=== PATIENT | male | born 1990 | race Caucasian/White ===

== ENCOUNTER 2021-08-01 13:04 | Outpatient (REF) | payer OTHER, SELFPAY ==
[2021-08-03 13:43] LABS: HIV-1/2 Ag & Ab Screen Negative (Negative)
[2021-08-04 10:00] LABS: Hepatitis C Ab w Rflx HCV PCR Negative (Negative)
[2021-08-04 12:19] LABS: HSV Type 1 Ab, IgG Positive (Negative); HSV Type 2 Ab, IgG Positive (Negative)
== END 2021-08-01 13:05 | disposition home or self-care (01) ==
LOC: NCHCN 13:04
PROVIDERS: PCP Nurse Practitioner Family; Visit Provider Family Medicine
DX: L98.9 Disorder of the skin and subcutaneous tissue, unspecified (principal); Z11.4 Encounter for screening for human immunodeficiency virus [HIV]; Z11.59 Encounter for screening for other viral diseases
CPT/HCPCS: 86803; 87389; 87529; 86695; 86696

== ENCOUNTER 2023-03-12 18:17 | Outpatient (REF) | payer OTHER, SELFPAY ==
[2023-03-12 14:21] LABS: Abs Immature Grans 0.01 10^3/uL (0.0-0.06); Absolute Basophil Count 0.04 10^3/uL (0.0-0.2); Absolute Eosinophil Count 0.05 10^3/uL (0.0-0.7); Absolute Lymphocyte Count 1.73 10^3/uL (1.2-3.4); Absolute Monocyte Count 0.44 10^3/uL (0.1-0.8); Absolute Neutrophil Count 2.57 10^3/uL (1.2-6.7); Basophils % 0.8; HCT 46.1 % (40.0-50.0); HGB 15.8 g/dL (13.5-17.5); Immature Grans % 0.2; Lymphocytes % 35.7; MCH 29.6 pg (27.0-33.0); MCHC 34.3 % (32.0-36.0); MCV 86 fL (80-95); MPV 10.7 fL (8.0-11.0); Monocytes % 9.1; Neutrophils % 53.2; Platelet Count 209 10^3/uL (130-400); RBC 5.34 10^6/uL (4.36-5.78); RDW 12.4 % (11.8-14.1); WBC 4.84 10^3/uL (4.4-10.8)
[2023-03-12 14:47] LABS: ALT 27 U/L (16-63); AST 17 U/L (15-37); Albumin 4.4 g/dL (3.4-5.0); Alkaline Phosphatase 98 U/L (46-116); Anion Gap 10.6 mmol/L (3-11); BUN 9 mg/dL (7-18); Bilirubin, Total 0.5 mg/dL (0.2-1.0); CO2 27.4 mmol/L (21.0-32.0); CREATININE 0.9 mg/dL (0.70-1.30); Calcium 9.7 mg/dL (8.5-10.1); Chloride 101 mmol/L (98-107); Estimated GFR 117.83 (mL/min/1.73m2); Glucose 96 mg/dL (74-106); Potassium 4.4 mmol/L (3.5-5.1); Sodium 139 mmol/L (136-145); TSH (W/Ref FT4) 0.98 uIU/mL (0.36-3.74)
[2023-03-12 14:56] LABS: Vitamin D 25 Total 13.5 ng/mL (30-100)
[2023-03-23 09:39] LABS: Testosterone, Free 10.9 ng/dL (4.85-19.0); Testosterone, Total 331 ng/dL (240-950)
== END 2023-03-12 18:18 | disposition home or self-care (01) ==
LOC: NCHCN 18:17
PROVIDERS: PCP Nurse Practitioner Family; Visit Provider Family Medicine
DX: E29.1 Testicular hypofunction (principal); D35.2 Benign neoplasm of pituitary gland; R53.83 Other fatigue
CPT/HCPCS: 80053; 82306; 84402; 84403; 84443; 85025

== ENCOUNTER 2023-03-19 21:04 | Outpatient (REF) | payer OTHER, SELFPAY ==
[2023-03-29 13:17] LABS: Testosterone, Free 9.86 ng/dL (4.85-19.0); Testosterone, Total 288 ng/dL (240-950)
== END 2023-03-19 21:05 | disposition home or self-care (01) ==
LOC: NCHCN 21:04
PROVIDERS: PCP Nurse Practitioner Family; Visit Provider Family Medicine
DX: E29.1 Testicular hypofunction (principal); R53.83 Other fatigue
CPT/HCPCS: 84402; 84403

== ENCOUNTER 2023-03-31 22:34 | Outpatient (CLI) | payer OTHER, SELFPAY ==
[2023-03-31 23:44] LABS: Prolactin 16.4 ng/mL (2.1-17.7)
== END 2023-03-31 22:35 | disposition home or self-care (01) ==
LOC: LBO 22:35
PROVIDERS: PCP Nurse Practitioner Family; Visit Provider Nurse Practitioner Family
DX: N62 Hypertrophy of breast (principal)
CPT/HCPCS: 36415; 84146

== ENCOUNTER 2023-07-21 14:06 | Outpatient (REF) | payer OTHER, SELFPAY ==
[2023-07-21 15:26] LABS: Vitamin D 25 Total 26.1 ng/mL (30-100)
== END 2023-07-21 14:07 | disposition home or self-care (01) ==
LOC: NCHCN 14:06
PROVIDERS: PCP Nurse Practitioner Family; Visit Provider Nurse Practitioner Family
DX: N62 Hypertrophy of breast (principal)
CPT/HCPCS: 82306

== ENCOUNTER 2024-02-18 02:05 | Outpatient (CLI) | payer OTHER, SELFPAY ==
--- OUTSIDE RECORDS SUMMARY | 2024-02-18 02:16 | XMS_ITS | Encounter Summary ---
Author Organization [facility] [place] [address] Care Team Providers Care Engine Assembly Supervisor Name Role Phone Dlima Garrett MD Primary Care Provider [phone] Encounter Details Date Type Department Care Team (Late st Contact Info) Description 09/29/2017 Orders [place] [address] Kash Jones MD [facility] [place] [address] Gynecomastia Social History Tobacco Use Types Packs/Day Years Used Date Smoking Tobacco: Never Smokeless Tobacco: Never Sex and Gender Information Value Date Recorded Sex Assigned at Not on file Gender Identity Not on file Sexual Orientation Not on file documented as of this encounter Plan of Treatment Not on file documented as of this encounter Results * Beta HCG, quantitative (02/24/2018 9:50 AM EDT) Beta Human Chorionic Gonadotropin, Quantitative <1 0 - 2 mlU/ML [facility] Comment: REFERENCE RANGES NON- FEMALE: ??Less than 5 mIU/mL POSTMENOPAUSAL FEMALE: ??Less than 8 mIU/mL ? -- FEMALES -- Weeks of ? HCG range ??(mIU/mL) ? 3 weeks ? 5.8 - 71.2 ? 4 weeks ? 9.5 - 750 ? 5 weeks ? 217 - 7,138 ? 6 weeks ? 158 - 31,795 ? 7 weeks ? 3,697 - 163,563 ? 8 weeks ? 32,065 - 149,571 ? 9 weeks ? 63,803 - 151,410 ?10 weeks ? 46,509 - 186,977 ?12 weeks ? 27,832 - 210,612 ?14 weeks ? 13,950 - 62,530 ?15 weeks ? 12,039 - 70,971 ?16 weeks ? 9,040 - 56,451 ?17 weeks ? 8,175 - 31,868 ?18 weeks ? 8,099 - 70,176 Blood specimen (specimen) 02/24/2018 9:50 AM EDT 02/24/2018 9:59 AM EDT Narrative Resulting Agency Comment Spec In Lab Karine Hua MD CHEMISTRY ORDERABLES Performing Organization Address City/State/[facility] Co de Phone Number [facility] [place] [address] documented in this encounter Visit Diagnoses Diagnosis Gynecomastia Hypertrophy of breast documented in this encounter Care Teams Engine Assembly Supervisor Relationship Specialty Start Date End Date Dilma Garrett MD [address] [place] [address] PCP - General Family Medicine 07/21/17 documented as of this encounter
--- OUTSIDE RECORDS SUMMARY | 2024-02-18 02:16 | XMS_ITS | Encounter Summary ---
Author Organization [facility] [place] [address] Care Team Providers Care Burnt Lime Drawer Name Role Phone Dilma Garrett MD Primary Care Provider [phone] Reason for Visit * Reason Onset Date Comments Results 11/01/2017 prolactin- Encounter Details Date Type Department Care Team (Late st Contact Info) Description 11/01/2017 Telephone [place] [phone] Kash Jones MD [facility] [place] [address] Results (prolactin-) Social History Tobacco Use Types Packs/Day Years Used Date Smoking Tobacco: Never Smokeless Tobacco: Never Sex and Gender Information Value Date Recorded Sex Assigned at Not on file Gender Identity Not on file Sexual Orientation Not on file documented as of this encounter Miscellaneous Notes * Telephone Encounter - Kash Jones MD - 11/01/2017 12:57 PM EDT Called the patient. I got the results that were drawn 10/25/2017. Prolactin is <0.6. Per the patient the gynecomastia has improved some. We will therefore continue the same dose of cabergoline. Will order 3 months refill instead of 1.5 months. He is to follow up with us in 4 months. documented in this encounter Plan of Treatment Not on file documented as of this encounter Visit Diagnoses Diagnosis Gynecomastia, male Hypertrophy of breast Hypogonadism in male documented in this encounter Care Teams Burnt Lime Drawer Relationship Specialty Start Date End Date Dilma Garrett MD [address] [place] [address] PCP - General Family Medicine 07/21/17 documented as of this encounter
--- OUTSIDE RECORDS SUMMARY | 2024-02-18 02:16 | XMS_ITS | Encounter Summary ---
[place] [address] Care Team Providers Care Electrical Logging Operator Name Role Phone Dilma Garrett MD Primary Care Provider [phone] Reason for Visit * Reason Onset Date Comments Appointment 02/03/2021 Encounter Details Date Type Department Care Team (Late st Contact Info) Description 02/03/2021 [place] [phone] Vivienne Magana I Appointment Social History Tobacco Use Types Packs/Day Years Used Date Smoking Tobacco: Never Smokeless Tobacco: Never Sex and Gender Information Value Date Recorded Sex Assigned at Not on file Gender Identity Not on file Sexual Orientation Not on file documented as of this encounter Miscellaneous Notes * Telephone Encounter - Vivienne Mccabe I - 02/03/2021 12:29 PM EDT Called to schedule ALEXIA appointment from Dr. Archer from recall list documented in this encounter Plan of Treatment Not on file documented as of this encounter Visit Diagnoses Not on filedocumented in this encounter Care Teams Electrical Logging Operator Relationship Specialty Start Date End Date Dilma Garrett MD [address] [place] [address] PCP - General Family Medicine 07/21/17 documented as of this encounter
--- OUTSIDE RECORDS SUMMARY | 2024-02-18 02:16 | XMS_ITS | Encounter Summary ---
[place] [address] Care Team Providers Care Core Blower Operator Name Role Phone Dilma Garrett MD Primary Care Provider [phone] Encounter Details Date Type Department Care Team (Latest Contact Info) Description 09/02/2017 7:35 AM EDT Laboratory Appointment Lab [address] [place] [phone] Elevated insulin-like growth factor 1 (IGF-1) level Social History Tobacco Use Types Packs/Day Years Used Date Smoking Tobacco: Never Smokeless Tobacco: Never Sex and Gender Information Value Date Recorded Sex Assigned at Not on file Gender Identity Not on file Sexual Orientation Not on file documented as of this encounter Plan of Treatment Not on file documented as of this encounter Procedures Procedure Name Priority Date/Time Associated Diagnosis Comments GLUCOSE 2 HR (TOLERANCE) Timed 09/02/2017 9:24 AM EDT Elevated insulin-like growth factor 1 (IGF-1) level GLUCOSE TOLERANCE, 2 HOURS Routine 09/02/2017 9:24 AM EDT Elevated insulin-like growth factor 1 (IGF-1) level GLUCOSE TOLERANCE, FASTING Timed 09/02/2017 7:37 AM EDT Elevated insulin-like growth factor 1 (IGF-1) level ORAL GLUCOSE DOSE (TOLERANCE) Timed 09/02/2017 7:37 AM EDT Elevated insulin-like growth factor 1 (IGF-1) level GROWTH HORMONE Routine 09/02/2017 7:37 AM EDT Elevated insulin-like growth factor 1 (IGF-1) level documented in this encounter Results * Glucose 2 Hr (Tolerance) (09/02/2017 9:24 AM EDT) Pathologist [facility] Glucose, Tolerance, 2 Hour 153 65 - 199 mg/dL [facility] Comment: 2 Hour Glucose Tolerance Interpretive Criteria Normal ?70-139 mg/dL Impaired Glucose Tolerance ?140-199 mg/dL Possible Diabetes ? >199 mg/dL Diagnosis and Classification of Diabetes Mellitus, Position Statement from the [place] [employer]. ??Diabetes Care, Volume 33, Supplement 1, May 2009 Blood specimen (specimen) 09/02/2017 9:24 AM EDT 09/02/2017 9:31 AM EDT Narrative Resulting Agency Comment Spec In Lab Kash Velazquez MD CHEMISTRY SHANE DUQUE Performing Organization Address [facility] [[email or web address]] Co de Phone Number [facility] [place] [address] * Oral Glucose Dose (Tolerance) (09/02/2017 7:37 AM EDT) [facility] Oral Glucose Dose 75 gm [facility] Blood specimen (specimen) 09/02/2017 7:37 AM EDT 09/02/2017 7:37 AM EDT Kash Velazquez MD [employer] SHANE DUQUE Performing Organization Address [facility]/ZIP Co de Phone Number [facility] [place] [address] * Glucose Fasting (Tolerance) (09/02/2017 7:37 AM EDT) [facility] Glucose Tolerance, Fasting 91 65 - 99 mg/dL [facility] Comment: Glucose Interpretive Criteria Fasting* Normal ?65-99 mg/dL Impaired Fasting glucose ?100-125 mg/dL Consistent with Diabetes Mellitus ? >or= 126 mg/dL *Fasting is defined as no caloric intake for at least 8 hours In the absence of unequivocal hyperglycemia a plasma glucose value of >or= 126 mg/dL should be repeated on a subsequent day. Diagnosis and Classification of Diabetes Mellitus, Position Statement from the [place] [employer]. ??Diabetes Care, Volume 33, Supplement 1, May 2009 Blood specimen (specimen) 09/02/2017 7:37 AM EDT 09/02/2017 7:46 AM EDT Narrative Resulting Agency Comment Spec In Lab Kash Velazquez MD CHEMISTRY SHANE DUQUE [facility] [place] [address] * Growth hormone (09/02/2017 7:37 AM EDT) Growth Hormone 0.1 ng/mL [facility] Comment: Expected results (Basal/Unstimulated): < 10 ng/mL (all ages) GH concentration in response to stimulation should rise by: ??>10 ng/mL (Insulin) ??>7.5 ng/mL (Arginine) GH secretion is episodic and pulsatile; transient levels up to 40 ng/mL have been observed in healthy individuals. References: Stimulation test information from: Renetta BALLARD, Handy ER, Adonis DE, eds. [employer]oke Textbook of Clinical Chemistry and Molecular Diagnostics. 4th ed. [place]:Elsevier Bull,2006:2272. Basal/Unstimulated Reference Interval from: IDS-iSYS Human Growth Hormone (hGH)[id number], 2011-04-01 Growth H. Time Random [facility] Blood specimen (specimen) 09/02/2017 7:37 AM EDT 09/02/2017 11:17 AM EDT Narrative Resulting Agency Comment Spec In Lab Karine Hua MD CHEMISTRY ORDERABLES [facility] [place] [address] documented in this encounter Visit Diagnoses Diagnosis Elevated insulin-like growth factor 1 (IGF-1) level Other and unspecified nonspecific immunological findings documented in this encounter Care Teams Core Blower Operator Relationship Specialty Start Date End Date Dilma Garrett MD [address] [place] [address] PCP - General Family Medicine 07/21/17 documented as of this encounter
--- OUTSIDE RECORDS SUMMARY | 2024-02-18 02:16 | XMS_ITS | Encounter Summary ---
[place] [address] Care Team Providers Care Grants Specialist Name Role Phone Dilma Garrett MD Primary Care Provider [phone] Encounter Details Date Type Department Care Team (Late st Contact Info) Description 10/20/2017 Notes [place] [phone] Yvrose Blankenship RN Social History Tobacco Use Types Packs/Day Years Used Date Smoking Tobacco: Never Smokeless Tobacco: Never Sex and Gender Information Value Date Recorded Sex Assigned at Not on file Gender Identity Not on file Sexual Orientation Not on file documented as of this encounter Progress Notes * Yvrose Blankenship, BETI - 10/20/2017 3:22 PM EDT Work/insurance paperwork sent to fax number on paperwork and then placed to be scanned into chart. documented in this encounter Plan of Treatment Not on file documented as of this encounter Visit Diagnoses Not on filedocumented in this encounter Care Teams Grants Specialist Relationship Specialty Start Date End Date Dilma Garrett MD [address] [place], [place] [id number] PCP - General Family Medicine 07/21/17 documented as of this encounter
--- OUTSIDE RECORDS SUMMARY | 2024-02-18 02:16 | XMS_ITS | Clinical Summary ---
Author Organization [facility] Address [facility] [place] [address] Care Team Providers Care Luncheonette Manager Name Role Phone Dilma Garrett MD Primary Care Provider [phone] Allergies No known active allergies Medications Medication Sig Dispensed Refills Start Date End Date Status cabergoline (DOSTINEX) 0.5 mg TabletIndications:Cook Short Order ecomastia, male,Hypogonadism in male Take 0.5 tablets by mouth once a week. 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 => try cabergoline Rx 09/17/17 before considering testosterone Rx 09/17/2017 Resolved Problems Problem Noted Date Diagnosed Date Resolved Date Hypogonadism male 09/17/2017 02/24/2018 Social History Tobacco Use Types Packs/Day Years Used Date Smoking Tobacco: Never Smokeless Tobacco: Never Sex and Gender Information Value Date Recorded Sex Assigned at Not on file Gender Identity Not on file Sexual Orientation Not on file Last Filed Vital Signs Vital Sign Reading Time Taken Comments Blood Pressure 131/75 05/15/2019 7:53 AM EST Pulse 80 05/15/2019 7:53 AM EST Temperature 36.4 ??C (97.5 ??F) 11/07/2018 7:46 AM ED T Respiratory Rate - - Oxygen Saturation 99% 11/07/2018 7:46 AM EDT Inhaled Oxygen Concentration - - Weight 77.1 kg (170 lb) 05/15/2019 7:53 AM EST Height 182.9 cm (6') 05/15/2019 7:53 AM EST Body Mass Index 23.06 05/15/2019 7:53 AM EST Plan of Treatment Health Maintenance Due Date Last Done Comments HIV screen 2010 Hepatitis C Screening 2010 Hepatitis B vaccine (0-59 yrs) (1) 2011 Tetanus/Diphtheria/Pertussis Vaccines (1 - Tdap) 04/21 Covid-19 Vaccine (1 - season) 2024 Influenza (Flu) vaccine (1 o f 1 - Influenza standard series) 01/02/2024 Care Teams Luncheonette Manager Relationship Specialty Start Date End Date Dilma Garrett MD [address] [place], [place] [id number] PCP - General Family Medicine 07/21/17
--- OUTSIDE RECORDS SUMMARY | 2024-02-18 02:16 | XMS_ITS | Continuity of Care Document ---
Author Organization [facility] Address [address] [place] [address] Care Team Providers Care Chief Science Officer Name Role Phone Dlima Garrett Primary Care Physician Encounter [facility] Date(s): 08/04/23 - 08/04/23 [facility] [address] [place] [address] Discharge Disposition: Home Allergies, Adverse Reactions, Alerts No Known Medication Allergies Assessment and Plan Future Appointments Medications valACYclovir 1 g oral tablet 1 g = 1 tab, Oral, Daily, # 30 tab, 0 Refill(s) Start Date: 07/27/23 Status: Ordered Vitamin D2 1.25 mg (50,000 intl units) oral capsule 50,000 IntlUnit = 1 cap, Oral, Daily, # 30 cap, 0 Refill(s) Start Date: 07/27/23 Status: Ordered zolpidem 5 mg oral tablet See Instructions, take 1-2 PO night of sleep study if needed, # 2 tab, 0 Refill(s), Pharmacy: [id number] Start Date: 08/04/23 Status: Ordered Problem List Condition Confirmation Course Effective Dates Status H ealth Status Informant Benign neoplasm of pituitary gland Confirmed Active Cholelithiasis without obstruction Confirmed Active Shift work sleep disorder Confirmed Active Fatigue Confirmed Active Herpesvirus infection Confirmed Active Hypertrophy of breast Confirmed Active Irritability and anger Confirmed Active Menopause present Confirmed Active Snoring Confirmed Active Testicular hypofunction Confirmed Active Varicocele Confirmed Active Vitamin D deficiency Confirmed Active Patient Care team information Care Team Personnel Name: Dilma Garrett MD Position: No Access Member Role: Primary Care Physician Care Team Related Persons Name: FELIPE BAUTISTA Address: [address] [place] [address] [place]
--- OUTSIDE RECORDS SUMMARY | 2024-02-18 02:16 | XMS_ITS | Encounter Summary ---
[place] [address] Care Team Providers Care Senior Business Objects Developer Name Role Phone Dilma Garrett MD Primary Care Provider [phone] Encounter Details Date Type Department Care Team (Latest Contact Info) Description 02/24/2018 10:00 AM EDT Laboratory Appointment Lab [address] [place] [phone] Gynecomastia; Gynecomastia, male; Hypogonadism in male Social History Tobacco Use Types Packs/Day Years Used Date Smoking Tobacco: Never Smokeless Tobacco: Never Sex and Gender Information Value Date Recorded Sex Assigned at Not on file Gender Identity Not on file Sexual Orientation Not on file documented as of this encounter Plan of Treatment Not on file documented as of this encounter Procedures Procedure Name Priority Date/Time Associated Diagnosis Comments PROLACTIN Routine 02/24/2018 9:50 AM EDT Gynecomastia, male Hypogonadism in male BETA HCG, QUANTITATIVE Routine 02/24/2018 9:50 AM EDT Gynecomastia documented in this encounter Results * (ABNORMAL) Prolactin (02/24/2018 9:50 AM EDT) Prolactin 3.6(L) 4.0 - 15.2 ng/mL [facility] Blood specimen (specimen) 02/24/2018 9:50 AM EDT 02/24/2018 9:59 AM EDT Narrative Resulting Agency Comment Spec In Lab Julio Turcios MD CHEMISTRY ORDERAB LES [facility] [place] [address] * Beta HCG, quantitative (02/24/2018 9:50 AM EDT) Beta Human Chorionic Gonadotropin, Quantitative <1 0 - 2 mlU/ML [facility] Comment: REFERENCE RANGES NON- FEMALE: [...] - 56,451 ?17 weeks ? 8,175 - 09,868 ?18 weeks ? 8,099 - 17,176 Blood specimen (specimen) 02/24/2018 9:50 AM EDT 02/24/2018 9:59 AM EDT Narrative Resulting Agency Comment Spec In Lab Karine Hua MD CHEMISTRY ORDERABLES [facility] [place] [address] documented in this encounter Visit Diagnoses Diagnosis Gynecomastia Hypertrophy of breast Gynecomastia, male Hypertrophy of breast Hypogonadism in male documented in this encounter Care Teams Senior Business Objects Developer Relationship Specialty Start Date End Date Dilma Garrett MD [address] [place] [address] PCP - General Family Medicine 07/21/17 documented as of this encounter
--- OUTSIDE RECORDS SUMMARY | 2024-02-18 02:16 | XMS_ITS | Encounter Summary ---
[place] [address] Care Team Providers Care K9 Handler Name Role Phone Dilma Garrett MD Primary Care Provider [phone] Encounter Details Date Type Department Care Team (Late st Contact Info) Description 05/26/2019 Tele[place] [phone] Gee Stevens RN Social History Tobacco Use Types Packs/Day Years Used Date Smoking Tobacco: Never Smokeless Tobacco: Never Sex and Gender Information Value Date Recorded Sex Assigned at Not on file Gender Identity Not on file Sexual Orientation Not on file documented as of this encounter Miscellaneous Notes * Telephone Encounter - Gee Stevens RN - 05/26/2019 11:59 AM EST Received voicemail from female caller that they had received pt's labs via the portal. She also sounded upset saying pt is nodding off when he's driving and they wanted him to be seen again. Returned call to phone provided: [phone] No answer, left voicemail for call back. documented in this encounter Plan of Treatment Not on file documented as of this encounter Visit Diagnoses Not on filedocumented in this encounter Care Teams K9 Handler Relationship Specialty Start Date End Date Dilma Garrett MD [address] [place] [address] PCP - General Family Medicine 07/21/17 documented as of this encounter
--- OUTSIDE RECORDS SUMMARY | 2024-02-18 02:16 | XMS_ITS | Encounter Summary ---
[place] [address] Care Team Providers Care Steam Plant Operator Name Role Phone Dilma Garrett MD Primary Care Provider [phone] Encounter Details Date Type Department Care Team (Late st Contact Info) Description 08/24/2017 Orders [place] [address] Kash Jones MD [facility] [place] [address] Low serum cortisol level Social History Tobacco Use Types Packs/Day Years Used Date Smoking Tobacco: Never Smokeless Tobacco: Never Sex and Gender Information Value Date Recorded Sex Assigned at Not on file Gender Identity Not on file Sexual Orientation Not on file documented as of this encounter Plan of Treatment Not on file documented as of this encounter Visit Diagnoses Diagnosis Low serum cortisol level Glucocorticoid deficiency documented in this encounter Care Teams Steam Plant Operator Relationship Specialty Start Date End Date Dilma Garrett MD [address] [place] [address] PCP - General Family Medicine 07/21/17 documented as of this encounter
--- OUTSIDE RECORDS SUMMARY | 2024-02-18 02:16 | XMS_ITS | Encounter Summary ---
Author Organization [facility] [place] [address] Care Team Providers Care Banana Loader Name Role Phone Dilma Garrett MD Primary Care Provider [phone] Reason for Visit * Reason Comments Pituitary Problem Encounter Details Date Type Department Care Team (Late st Contact Info) Description 02/24/2018 11:00 AM EDT Office [place] [address] Kash Jones MD [facility] [place] [address] Elevated prolactin level; Pituitary abnormality; History of hypogonadism; Gynecomastia, male; Hypogonadism in male Social History Tobacco Use Types Packs/Day Years Used Date Smoking Tobacco: Never Smokeless Tobacco: Never Sex and Gender Information Value Date Recorded Sex Assigned at Not on file Gender Identity Not on file Sexual Orientation Not on file documented as of this encounter Last Filed Vital Signs Vital Sign Reading Time Taken Comments Blood Pressure 128/54 02/24/2018 11:06 AM EDT Pulse 70 02/24/2018 11:06 AM EDT Temperature - - Respiratory Rate - - Oxygen Saturation - - Inhaled Oxygen Concentration - - Weight 79.7 kg (175 lb 9.6 oz) 02/24/2018 11:06 AM EDT Height 180.3 cm (5' 11) 02/24/2018 11:06 AM EDT Body Mass Index 24.49 02/24/2018 11:06 AM EDT documented in this encounter Patient Instructions * Patient Instructions* Kash Jones MD - 02/24/2018 11:00 AM EDT 1. We will decrease the cabergoline to once a week 2. Please have blood work in 3 months documented in this encounter Progress Notes * Kash Jones MD - 02/24/2018 11:00 AM EDT Images from the original note were not included. Endocrinology Outpatient Note Name: Dagoberto Valenzuela Date: 02/24/18 Chief Complaint Patient presents with ??? Pituitary Problem HPI: Dagoberto Valenzuela is a 27 y.o.male with PMH significant for history of hypogonadism the settingof a mildly elevated prolactin and a 0.4 X 0.2 cm hypointense area in the right aspect of the pituitary gland who comes to the clinic for follow up. I originally saw the patient 08/04/2017 for hot flashes and irritability in the setting of a pituitary mass. 1.5 months prior to that appointment he hadnoticed a left sided breast lump, having fatigue and feeling still. He did not have any nipple discharge then or visual symptoms but was not having morning erections anymore. We did blood work for adrenal insufficiency which was negative. We did IGF-1 which was elevated and GH suppressed with OGT, prolactin was mildly elevated 34.8. We offered starting testosterone for hypogonadism but he wanted to discuss further. On follow up appointment 09/17/2017, he continued to feel tired and having hot flashes. It was aboutthe same. The left sided gynecomastia does not feel as tender but still there. For gynecomastia and bone health we recommended treating with cabergoline in the setting of a mildly elevated prolactin. Testosterone normalized 09/14/2017 total 424 and free 75.5 (even prior to starting DA). He agreed to starting cabergoline for mildly elevated prolactin. He feels like the nipple swelling has gone down (about 40%) and now denies any pain. Regarding morning erection and sexual function it has improved from last time. Denies having any nipple discharge.Denies noticing anything abnormal in his testicles. Denies having any adverse effect from the cabergoline. At first he had vertigo but not anymore. Occasionally he has constipation. ROS: as per HPI No past medical history on file. No past surgical history on file. No Known Allergies Current Outpatient Medications: ??? cabergoline (DOSTINEX) 0.5 mg Tablet, Take 0.5 tablets by mouth twice a week., Disp: 45 tablet,Rfl: 3 Physical Exam: BP 128/54 Pulse 70 Ht 180.3 cm (5' 11) Wt 79.7 kg (175 lb 9.6 oz) BMI 24.49 kg/m?? General appearance - alert, well appearing, and in no distress Mouth - mucous membranes moist, pharynx normal without lesions Neck - supple, no significant adenopathy Chest - clear to auscultation, no wheezes, rales or rhonchi, symmetric air entry Heart - normal rate, regular rhythm, normal S1, S2, no murmurs, rubs, clicks or gallops Abdomen - soft, nontender, nondistended, no masses or organomegaly Breasts - left sided minimal gynecomastia Neurological - alert, oriented, normal speech, no focal findings or movement disorder noted Extremities - peripheral pulses normal, no pedal edema, no clubbing or cyanosis Skin - normal coloration and turgor, no rashes, no suspicious skin lesions noted Labs: Ref. Range 02/24/2018 09:50 Beta hCG Quant Latest Ref Range: 0 - 2 mlU/ML <1 Prolactin Latest Ref Range: 4.0 - 15.2 ng/mL 3.6 (L) Ref. Range 09/14/2017 08:16 Testo Total Latest Ref Range: 250 - 1100 ng/dL 424 Testo Free Latest Ref Range: 35.0 - 155.0 pg/mL 75.5 Imaging: Reviewd Assessment and plan: Dagoberto Valenzuela is a 27 y.o.male with PMH significant for history of hypogonadism the setting of amildly elevated prolactin and a 0.4 X 0.2 cm hypointense area in the right aspect of the pituitary gland who comes to the clinic for follow up. On last appointment we started him on cabergoline. The t estosterone and free testosterone was normal (that even before starting DA). After being started on cabergoline his sexual function has improved. In addition his gynecomastia is better. His last MRI was done 07/27/2017 and at some point we will have to repeat imaging (probablyon follow up). For now, we will decrease cabergoline and check prolactin in 3 months. On next follow up we will discuss repeating brain MRI for previous pituitary abnormality and stopping the DA (depe nding on what the imaging shows). 1. Resolved transient hypogonadism Left sided gynecomastia Elevated prolactin (resolved) on cabergoline 0.4 X 0.2 cm hypointense area in the right aspect of the pituitary gland on MRI 07/2017 - we will decrease the dose of cabergoline to once a week - will check prolactin in 3 months (external order) - we will see back in 1 year and on that occasion we will consider doing MRI and taking off DA (depending on what the MRI shows) - he is not having any ophthalmopathy symptoms or any other concerning symptoms Patient was seen and discussed with Attending Physician, Dr. Jonas. Follow up in 1 year. Kash Velazquez MD Endocrinology, Diabetes and Metabolism Fellow Pager #[phone] 02/24/2018 * Dagoberto Jonas DO - 02/24/2018 11:00 AM EDT I have seen the patient and reviewed Dr Archer's history and I agree with the details as written. The assessment and plan were formulated in discussion with me and I agree with them as documented. Dagoberto Jonas DO, MS Handle Finishercommunity administrator Section of Endocrinology [facility] documented in this encounter Plan of Treatment Not on file documented as of this encounter Visit Diagnoses Diagnosis Elevated prolactin level Other and unspecified anterior pituitary hyperfunction Pituitary abnormality Unspecified disorder of the pituitary gland and its hypothalamic control History of hypogonadism Personal history of other endocrine, metabolic, and immunity disorders Gynecomastia, male Hypertrophy of breast Hypogonadism in male documented in this encounter Care Teams Banana Loader Relationship Specialty Start Date End Date Dilma Garrett MD [address] [place] [address] PCP - General Family Medicine 07/21/17 documented as of this encounter
--- OUTSIDE RECORDS SUMMARY | 2024-02-18 02:16 | XMS_ITS | Encounter Summary ---
[place] [address] Care Team Providers Care Hotel Front Desk Clerk Name Role Phone Dilma Garrett MD Primary Care Provider [phone] Reason for Visit * Reason Onset Date Comments Medication Refill 05/20/2020 Encounter Details Date Type Department Care Team (Late st Contact Info) Description 05/20/2020 [place] [id number] Sharon Feliz RN Gynecomastia, male; Hypogonadism in male Social History [...] male documented in this encounter Care Teams Hotel Front Desk Clerk Relationship Specialty Start Date End Date Dilma Garrett MD [address] [place] [address] PCP - General Family Medicine 07/21/17 documented as of this encounter
--- OUTSIDE RECORDS SUMMARY | 2024-02-18 02:16 | XMS_ITS | Encounter Summary ---
Author Organization [facility] [place] [address] Care Team Providers Care Asphalt Tile Floor Layer Name Role Phone Dilma Garrett MD Primary Care Provider [phone] Reason for Visit * Reason Onset Date Comments Medication Refill 10/21/2017 Encounter Details Date Type Department Care Team (Late st Contact Info) Description 10/21/2017 [place] [address] Kash Jones MD [facility] [place] [address] Gynecomastia, male; Hypogonadism in male Social History [...] male documented in this encounter Care Teams Asphalt Tile Floor Layer Relationship Specialty Start Date End Date Dilma Garrett MD [address] [place] [address] PCP - General Family Medicine 07/21/17 documented as of this encounter
--- OUTSIDE RECORDS SUMMARY | 2024-02-18 02:16 | XMS_ITS | Encounter Summary ---
Author Organization [facility] [place] [address] Care Team Providers Care Reforestation Worker Name Role Phone Dilma Garrett MD Primary Care Provider [phone] Encounter Details Date Type Department Care Team (Late st Contact Info) Description 08/24/2017 Telephone [place] [address] Kash Jones MD [facility] [place] [address] Social History Tobacco Use Types Packs/Day Years Used Date Smoking Tobacco: Never Smokeless Tobacco: Never Sex and Gender Information Value Date Recorded Sex Assigned at Not on file Gender Identity Not on file Sexual Orientation Not on file documented as of this encounter Miscellaneous Notes * Telephone Encounter - Kash Jones MD - 08/24/2017 1:46 PM EDT Called the patient to see how he is feeling- fatigue, and hot flashes. The fatigue is about the same, worse in the morning and afternoon and better at bedtime. Denies abdominal pain, no nausea or vomiting. His appetite is pretty good, he has lost about 5 lb within 2 weeks. I explained the rationale behind doing both cosyntropin stim test and growth hormone suppression. He understood. We will first start by doing the cosyntropin stim test. I have placed orders and once I get those results we will discuss doing the GH suppression test (GH suppression test and cosyntropin should be done different days). Patient was discussed with Dr. Hua. documented in this encounter Plan of Treatment Not on file documented as of this encounter Results * Cortisol (08/26/2017 3:22 PM EDT) Cortisol 24.1 mcg/dL [facility] Comment: Reference ranges: ??AM (6-10am): ??4.8-19.5 mcg/dL ??PM (4-8pm) : ??2.5-11.9 mcg/dL Blood specimen (specimen) 08/26/2017 3:22 PM EDT 08/26/2017 3:33 PM EDT Narrative Resulting Agency Comment Spec In Lab Karine Hua MD CHEMISTRY ORDERABLES Performing Organization Address City/[facility]/ZIP Co de Phone Number [facility] [place] [address] * Cortisol (08/26/2017 1:57 PM EDT) Cortisol 9.2 mcg/dL [facility] Comment: Reference ranges: ??AM (6-10am): ??4.8-19.5 mcg/dL ??PM (4-8pm) : ??2.5-11.9 mcg/dL Blood specimen (specimen) 08/26/2017 1:57 PM EDT 08/26/2017 2:08 PM EDT Narrative Resulting Agency Comment Spec In Lab Karine Hua MD CHEMISTRY ORDERABLES [facility] [place] [address] documented in this encounter Visit Diagnoses Diagnosis Elevated growth hormone level Unspecified endocrine disorder Low serum cortisol level Glucocorticoid deficiency documented in this encounter Care Teams Reforestation Worker Relationship Specialty Start Date End Date Dilma Garrett MD [address] [place] [address] PCP - General Family Medicine 07/21/17 documented as of this encounter
--- OUTSIDE RECORDS SUMMARY | 2024-02-18 02:16 | XMS_ITS | Encounter Summary ---
[place] [address] Care Team Providers Care Home Based Assistant Name Role Phone Dilma Garrett MD Primary Care Provider Reason for Visit * Reason Onset Date Comments Results 09/10/2017 OGTT GH Encounter Details Date Type Department Care Team (Late st Contact Info) Description 09/10/2017 Telephone [place] [address] Yvrose Blankenship RN Results (OGTT GH) Social History Tobacco Use Types Packs/Day Years Used Date Smoking Tobacco: Never Smokeless Tobacco: Never Sex and Gender Information Value Date Recorded Sex Assigned at Not on file Gender Identity Not on file Sexual Orientation Not on file documented as of this encounter Miscellaneous Notes * Addendum Note - Kash Ferrera MD - 09/13/2017 10:40 AM EDTAddended by: KASH FERRERA on: 09/13/2017 10:40 AM Modules accepted: Orders * Addendum Note - Kash Ferrera MD - 09/13/2017 10:39 AM EDTAddended by: KASH FERRERA on: 09/13/2017 10:39 AM Modules accepted: Orders * Telephone Encounter - Kash Ferrera MD - 09/13/2017 10:06 AM EDT Called the patient to let him know I have replied to his e-mail. I discussed the need for further work up for secondary hypogonadism (for example iron and ferritin)and repeat morning testosterone. He is ok to be seen on WednesdaySeptember 17 at 9 am. Will have secretaries schedule him. * Telephone Encounter - Kash Ferrera MD - 09/10/2017 4:02 PM EDT Called the patient to discuss laboratory results. He had cosyntropin stimulation test that does not suggest adrenal insufficiency. Although IGF-1 waselevated 2 hours OGTT did suppress the GH. Although prolactin is mildly elevated 34.8, I don't think that by lowering with medications we willtreat secondary hypogonadism and he might benefit more from testosterone replacement. If we were to prescribe testosterone, patient would prefer patch but wants to think more about it. Will discuss further with my attending Dr. Hua. * Telephone Encounter - Yvrose Blankenship RN - 09/10/2017 3:40 PM EDT Mother called triage and left number [phone]. Mother would like to know if Dr. Odonnell had a chance yet to review son's recent lab testing. Will forward question to Provider. documented in this encounter Plan of Treatment Not on file documented as of this encounter Results * Luteinizing Hormone (09/14/2017 8:16 AM EDT) [facility] Luteinizing Hormone 2.7 1.7 - 8.6 mlU/ML [facility] Comment: Reference ranges: ?? Females ?? Follicular: ? 2.4-12.6 mIU/mL ?? Ovulation: ?14.0-95.6 mIU/mL ?? Luteal: ? 1.0-11.4 mIU/mL ?? Postmenopausal: ? 7.7-58.5 mIU/mL Blood specimen (specimen) 09/14/2017 8:16 AM EDT 09/14/2017 8:38 AM EDT Narrative Resulting Agency Comment Spec In Lab Karine Hua MD CHEMISTRY ORDERABLES Performing Organization Address [facility] Co de Phone Number [facility] [place] [address] * Follicle Stimulating Hormone (09/14/2017 8:16 AM EDT) Follicle Stimulating Hormone 1.6 1.5 - 12.4 mlU/ML [facility] Comment: Reference Ranges: Females: Follicular: ? 3.5-12.5 mIU/mL Ovulation: ?4.7-21.5 mIU/mL Luteal: ? 1.7-7.7 mIU/mL Postmenopausal: 25.8-134.8 mIU/mL Blood specimen (specimen) 09/14/2017 8:16 AM EDT 09/14/2017 8:38 AM EDT Narrative Resulting Agency Comment Spec In Lab Karine Hua MD CHEMISTRY ORDERABLES Performing Organization Address City/[facility]/ZIP Co de Phone Number [facility] [place] [address] * Iron (09/14/2017 8:16 AM EDT) Iron 55 45 - 160 mcg/dL [facility] Blood specimen (specimen) 09/14/2017 8:16 AM EDT 09/14/2017 8:38 AM EDT Narrative Resulting Agency Comment Spec In Lab Karine Hua MD CHEMISTRY ORDERABLES Performing Organization Address City/[facility] Co de Phone Number [facility] [place] [address] * (ABNORMAL) Ferritin (09/14/2017 8:16 AM EDT) Pathologist [facility] Ferritin 27(L) 30 - 400 ng/mL [facility] Comment: Pediatric reference ranges not verified at [facility], interpret with caution. Reference ranges for females greater than 50 years of age approach values for men, i.e., 30-400 ng/mL. Blood specimen (specimen) 09/14/2017 8:16 AM EDT 09/14/2017 8:38 AM EDT Narrative Resulting Agency Comment Spec In Lab Karine Hua MD CHEMISTRY ORDERABLES Performing Organization Address [facility] Co de Phone Number [facility] [place] [address] * Testosterone, total and free (09/14/2017 8:16 AM EDT) [facility] Testo Total 424 250 - 1100 ng/dL [facility] Comment: For more information on this test, go to http://education.Seaters/faq/ TotalTestosteroneLCMSMS This test was developed and its analytical performance characteristics have been determined by [employer] [place], [place]. It has not been cleared or approved by the U.S. Food and Drug Administration. This assay has been validated pursuant to the CLIA regulations and is used for clinical purposes. Testo Free (AUGUST) 75.5 35.0 - 155.0 pg/mL [facility] Comment: This test was developed and its analytical performance characteristics have been determined by [employer] [place], [place]. It has not been cleared or approved by the U.S. Food and Drug Administration. This assay has been validated pursuant to the CLIA regulations and is used for clinical purposes. Test Performed by [facility], [employer] [place], [address] [place], [place] Lucius Mendoza M.D., Ph.D., Director of Laboratories , [place] [id number] Blood specimen (specimen) 09/14/2017 8:16 AM EDT 09/14/2017 11:37 AM EDT Narrative Resulting Agency Comment Spec In Lab Karine Hua MD LAB SEND OUT ORDERAB LES Performing Organization Address City/State/[facility] Co de Phone Number [facility] [place] [address] documented in this encounter Visit Diagnoses Diagnosis Hypogonadism in male documented in this encounter Care Teams Home Based Assistant Relationship Specialty Start Date End Date Dilma Garrett MD [address] [place] [address] PCP - General Family Medicine 07/21/17 documented as of this encounter
--- OUTSIDE RECORDS SUMMARY | 2024-02-18 02:16 | XMS_ITS | Encounter Summary ---
Author Organization [facility] [place] [address] Care Team Providers Care Make Up Operator Name Role Phone Dilma Garrett MD Primary Care Provider Reason for Visit * Reason Comments Pituitary Problem Gynecomastia Encounter Details Date Type Department Care Team (Late st Contact Info) Description 05/15/2019 8:00 AM EST Office [place] [phone] Kash Jones MD [facility] [place] [address] Hyperprolactinemia; History of gynecomastia Social History Tobacco Use Types Packs/Day Years [...] Pulse 80 05/15/2019 7:53 AM EST Temperature - - Respiratory Rate - - Oxygen Saturation - - Inhaled Oxygen Concentration - - Weight 77.1 kg (170 lb) 05/15/2019 7:53 AM EST Height 182.9 cm (6') 05/15/2019 7:53 AM EST Body Mass Index 23.06 05/15/2019 7:53 AM EST documented in this encounter Progress Notes * Kash Jones MD - 05/15/2019 8:00 AM EST Images from the original note were not included. Endocrinology Outpatient Note Name: Dagoberto Valenzuela Date: 05/15/19 Chief Complaint Patient presents with ??? Pituitary Problem ??? Gynecomastia HPI: Dagoberto Valenzuela is a 29 y.o.male with PMH significant for hypogonadism in the setting of a mild elevated prolactin and a 0.4 X 0.2 cm hypointense area in the right aspect of the pituitary glandwho comes to the clinic for follow up. I saw the patient first 08/2017 for hot flashes, irritability and pituitary abnormality. 1.5 months prior he had noticed a left sided breast lump along with fatigue and still. We did prolactin which was mildly elevated. He followed up 08/2017 and he continued to feel tired and still having hot flashes. We recommended treating with cabergoline. Testosterone then normalized on 09/14/2017 laboratory results. I saw him 01/2018 and he felt nipple swelling had gone down more (about 40%). We decreased the cabergoline to once a week (from 0.25 mg twice a week) and checked prolactin ~3 months after (2.9). His last appointment was 11/07/2018 and at the time still having fatigue but much improved. The gynec omastia had gone down even more and non tender. No issues with morning erections or terminal hair. We did repeat MRI which showed no pituitary lesion therefore I sent message asking to stop the cabergoline and repeating testosterone and prolactin in 3 months. Per the patient he is doing good. He stopped the cabergoline about ~5 months ago (after being on iffor about 1 year 3 months). The left sided gynecomastia is about the same and not worse than before. He denies any nipple discharge. Mood is okay and denies any complains. He has morning erections all the time and libido is normal. No change in the frequency in which he shaves. Denies any visual disturbances or headaches. ROS: as per HPI Past Medical History: Diagnosis Date ??? Pituitary mass No past surgical history on file. No Known Allergies Current Outpatient Medications: ??? cabergoline (DOSTINEX) 0.5 mg Tablet, Take 0.5 tablets by mouth once a week. (Patient not taking: Reported on 05/15/2019), Disp: 45 tablet, Rfl: 3 Physical Exam: BP 131/75 Pulse 80 Ht 182.9 cm (6') Wt 77.1 kg (170 lb) BMI 23.06 kg/m?? General appearance - alert, well appearing, and in no distress Neck - supple, no significant adenopathy Chest - clear to auscultation, no wheezes, rales or rhonchi, symmetric air entry, mild areolar enlargement but no real gynecomastia Heart - normal rate, regular rhythm, normal S1, S2, no murmurs, rubs, clicks or gallops Abdomen - soft, nontender, nondistended, no masses or organomegaly Neurological - alert, oriented, normal speech, no focal findings or movement disorder noted Musculoskeletal - no joint tenderness, deformity or swelling Extremities - peripheral pulses normal, no pedal edema, no clubbing or cyanosis Labs: Ref. Range 08/05/2017 08:33 08/26/2017 13:57 08/26/2017 15:22 09/02/2017 07:37 09/14/2017 08:16 02/24/201809:50 Free T4 Latest Ref Range: 0.93 - 1.70 ng/dL 1.71 (H) TSH Latest Ref Range: 0.27 - 4.20 mlU/ML 1.23 Beta hCG Quant Latest Ref Range: 0 - 2 mlU/ML <1 FSH Latest Ref Range: 1.5 - 12.4 mlU/ML 1.3 (L) 1.6 LH Latest Ref Range: 1.7 - 8.6 mlU/ML 2.0 2.7 Prolactin Latest Ref Range: 4.0 - 15.2 ng/mL 34.8 (H) 3.6 (L) Cortisol Latest Units: mcg/dL 7.0 9.2 24.1 Growth Hormone Latest Units: ng/mL 0.1 Growth H. Time Unknown Random IgF-1 Latest Ref Range: 98 - 282 ng/mL 299 (H) Testo Total Latest Ref Range: 250 - 1100 ng/dL 424 Testo Free Latest Ref Range: 35.0 - 155.0 pg/mL 75.5 ACTH Latest Ref Range: 6 - 50 pg/mL 18 Imaging: MRI brain wwo contrast: 11/12/2018 IMPRESSION No definite pituitary lesion. Sensitivity for microadenomas is higher with dynamic postcontrast imaging. We will arrange for the patient to return for additional imaging. ?? Assessment and plan: Dagoberto Valenzuela is a 29 y.o.male with PMH significant for hypogonadism in the setting of a mild elevated prolactin and a 0.4 X 0.2 cm hypointense area in the right aspect of the pituitary gland who comes to the clinic for follow up. The patient does not have any hypogonadism symptoms. He stopped the cabergoline about 5 months ago and is due for total, free testosterone and prolactin. On repeat imaging 10/2018, there was no definite pituitary lesion. 1. Resolved transient hypogonadism?? History of left sided gynecomastia History of mildly elevated prolactin - he has been off cabergoline for ~5 months - we will check prolactin, total and free testosterone Patient was seen and discussed with Attending Physician, Dr. Heredia. Follow up in 1 year. Kash Velazquez MD Endocrinology, Diabetes and Metabolism Fellow Pager #[phone] 05/15/2019 * Reg Heredia MD - 05/15/2019 8:00 AM EST I have reviewed Dr. Archer's note and agree with recommendations and plans. Further plans can be discussed when test results from today are available. Orestes Heredia MD documented in this encounter Miscellaneous Notes * Addendum Note - Sultana Quinn - 05/15/2019 8:00 AM ESTAddended by: SULTANA QUINN on: 05/15/2019 08:45 AM Modules accepted: Orders documented in this encounter Plan of Treatment Not on file documented as of this encounter Procedures Procedure Name Priority Date/Time Associated Diagnosis Comments HC PCH TESTOSTERONE,FREE Routine 05/15/2019 8:48 AM EST Hyperprolactinemia HC PROLACTIN ASSAY, SERUM Routine 05/15/2019 8:48 AM EST Hyperprolactinemia documented in this encounter Results * (ABNORMAL) Testosterone, total and free (05/15/2019 8:48 AM EST) Testo Total 219(L) 250 - 1100 ng/dL [facility] Comment: For additional information, please refer to http://education.Szl.it/faq/ [email or web address] (This link is being provided for informational/ educational purposes only.) This test was developed and its analytical performance characteristics have been determined by [facility] [place], [place]. It has not been cleared or approved by the U.S. Food and Drug Administration. This assay has been validated pursuant to the CLIA regulations and is used for clinical purposes. Testo Free (AUGUST) 49.3 35.0 - 155.0 pg/mL [facility] Comment: This test was developed and its analytical performance characteristics have been determined by [facility] [place], [place]. It has not been cleared or approved by the U.S. Food and Drug Administration. This assay has been validated pursuant to the CLIA regulations and is used for clinical purposes. Test Performed by [facility], [facility], [address] [place] [address] Lucius Mendoza M.D., Ph.D., Director of Laboratories , CLIA [id number] Blood specimen (specimen) 05/15/2019 8:48 AM EST 05/15/2019 11:59 AM EST Narrative Resulting Agency Comment Spec In Lab Reg Heredia MD LAB SEND OUT ORDERAB LES [facility] [place] [address] * (ABNORMAL) Prolactin (05/15/2019 8:48 AM EST) Prolactin 30.4(H) 4.0 - 15.2 ng/mL [facility] Blood specimen (specimen) 05/15/2019 8:48 AM EST 05/15/2019 8:55 AM EST Narrative Resulting Agency Comment Spec In Lab Reg Heredia MD CHEMISTRY ORDERABLES [facility] [place] [address] documented in this encounter Visit Diagnoses Diagnosis Hyperprolactinemia Other and unspecified anterior pituitary hyperfunction History of gynecomastia Personal history of other specified diseases documented in this encounter Care Teams Make Up Operator Relationship Specialty Start Date End Date Dilma Garrett MD [address] [place] [address] PCP - General Family Medicine 07/21/17 documented as of this encounter
--- OUTSIDE RECORDS SUMMARY | 2024-02-18 02:16 | XMS_ITS | Encounter Summary ---
Author Organization [facility] [place] [address] Care Team Providers Care Histology Technologist Name Role Phone Dilma Garrett MD Primary Care Provider [phone] Reason for Visit * Reason Comments Follow-up Encounter Details Date Type Department Care Team (Late st Contact Info) Description 09/17/2017 9:00 AM EDT Office [place] [phone] Kash Jones MD [facility] [place] [address] Gynecomastia, male; Hypogonadism in male; Pituitary adenoma Social History Tobacco Use Types Packs/Day Years Used Date Smoking Tobacco: Never Smokeless Tobacco: Never Sex and Gender Information Value Date Recorded Sex Assigned at Not on file Gender Identity Not on file Sexual Orientation Not on file documented as of this encounter Last Filed Vital Signs Vital Sign Reading Time Taken Comments Blood Pressure 121/58 09/17/2017 8:41 AM EDT Pulse 64 09/17/2017 8:41 AM EDT Temperature - - Respiratory Rate - - Oxygen Saturation - - Inhaled Oxygen Concentration - - Weight 72.9 kg (160 lb 12.8 oz) 09/17/2017 8:41 AM EDT Height 180.3 cm (5' 11) 09/17/2017 8:41 AM EDT Body Mass Index 22.43 09/17/2017 8:41 AM EDT documented in this encounter Patient Instructions * Patient Instructions* Kash Jones MD - 09/17/2017 9:00 AM EDT 1. We will start carbergoline 2. We will do labs in 6 weeks documented in this encounter Progress Notes * Kash Jones MD - 09/17/2017 9:00 AM EDT Images from the original note were not included. Endocrinology Outpatient Note Name: Dagoberto Valenzuela Date: 09/17/17 Chief Complaint Patient presents with ??? Follow-up HPI: Dagoberto Valenzuela is a 27 y.o.male with no significant PMH who comes to the clinic for follow up of hypogonadism. Patient was seen by me 08/04/2017 for hot flashes and irritability in the setting of a pituitary mass. Around 1.5 months ago he had noticed a left breast lump and having fatigue and feeling still. He did not have any nipple discharge or visual symptoms. He was not having morning erections anymore for about 1 month. We did blood work that ruled out adrenal insufficiency. Although IGF-1 was elevated 299, GH suppressed with OGTT. prolactin was mildly elevated 34.8. FSH was 1.3. We offered starting testosterone replacement but the patient wanted to discuss further. Per the patient he is feeling tired and having hot flashes. It varies from day to day but for the most part about the same. The left sided gynecomastia does not feel as tender but is still there. ROS: as per HPI No past medical history on file. No past surgical history on file. No Known Allergies Physical Exam: BP 121/58 Pulse 64 Ht 180.3 cm (5' 11) Wt 72.9 kg (160 lb 12.8 oz) BMI 22.43 kg/m2 General appearance - alert, well appearing, and in no distress Neck - supple, no significant adenopathy Chest - clear to auscultation, no wheezes, rales or rhonchi, symmetric air entry Heart - normal rate, regular rhythm, normal S1, S2, no murmurs, rubs, clicks or gallops Abdomen - soft, nontender, nondistended, no masses or organomegaly Breasts - + left sided gynecomastia Extremities - peripheral pulses normal, no pedal edema, no clubbing or cyanosis Skin - normal coloration and turgor, no rashes, no suspicious skin lesions noted Labs: Ref. Range 08/05/2017 08:33 Free T4 Latest Ref Range: 0.93 - 1.70 ng/dL 1.71 (H) TSH Latest Ref Range: 0.27 - 4.20 mlU/ML 1.23 Ref. Range 08/05/2017 08:33 FSH Latest Ref Range: 1.5 - 12.4 mlU/ML 1.3 (L) LH Latest Ref Range: 1.7 - 8.6 mlU/ML 2.0 Prolactin Latest Ref Range: 4.0 - 15.2 ng/mL 34.8 (H) Ref. Range 08/05/2017 08:33 Cortisol Latest Units: mcg/dL 7.0 IgF-1 Latest Ref Range: 98 - 282 ng/mL 299 (H) ACTH Latest Ref Range: 6 - 50 pg/mL 18 Ref. Range 08/26/2017 13:57 08/26/2017 15:22 Cortisol Latest Units: mcg/dL 9.2 24.1 Ref. Range 09/02/2017 07:37 Growth Hormone Latest Units: ng/mL 0.1 Imaging: MRI pituitary: 0.4 X 0.2 cm hypointense lesion in right aspect of pituitary gland. Pituitary mass should be considered. Assessment and plan: Dagoberto Valenzuela is a 27 y.o.male with no significant PMH who comes to the clinic for gynecomastia,hot flashes and irritability in the setting of a pituitary mass. We have done extensive biochemical work up. Prolactin was just mildly elevated (34.8) with a low FSH (1.3). We've ruled out adrenal insufficiency with cosyntropin stimulation test. IGF-1 was elevatedtherefore we did OGTT with GH and suppressed so we have ruled out acromegaly. We know the pituitarymass is small and not having any significant mass effect. From biochemical work up it is not hyperfunctioning (prolactin not significantly elevated <100 and OGTT suppressed GH) but just causing hypogonadism. For gynecomastia and bone health we would recommend treating. We will supress prolactin with dopamine agonist (cabergoline) and will recheck testosterone/free testosterone, FSH and LH in 6 weeks. If testosterone levels normalized we can continue cabergoline but it they don't we would consider starting testosterone replacement. I have answered all of their questions and explained lab results in depth. 1. 0.4 X 0.2 cm hypointense lesion in right aspect of pituitary gland Non functioning pituitary adenoma Secondary hypogonadism Left sided gynecomastia High prolactin, <100 (possible stalk effect) - will wait for [testosterone and free testosterone] - will start cabergoline (twice a week) and check [testosterone, free testosterone, LH and FSH] in 6 weeks - if testosterone doesn't normalize 6 weeks after starting cabergoline would consider starting testosterone replacement Patient was seen and discussed with Attending Physician, Dr. Turcios. Follow up in 4 months. Kash Velazquez MD Endocrinology, Diabetes and Metabolism Fellow Pager #[phone] 09/17/2017 * Julio Turcios MD - 09/17/2017 9:00 AM EDT I have seen the patient and reviewed Dr. Kash Sarkar's above history and I agree with the details as written. The assessment and plan were formulated in discussion with me and I agree with them as documented. We will try cabergoline for this young man to help normalize PRL and give him ~30% chance of reducing micro-adonoma size in a likely non-functioning adenoma. Patient Active Problem List Diagnosis Code ??? Hypogonadism male E29.1 ??? Hyperprolactinemia E22.1 ??? Pituitary adenoma 0.4 cm with stalk deviation and elevated PRL 35 with central hypogonadism, likely a non-functioning adenoma => try cabergoline Rx 09/17/17 before considering testosterone Rx D35.2 Julio Turcios MD, PhD, FACP, FACE documented in this encounter Plan of Treatment Not on file documented as of this encounter Results * (ABNORMAL) Prolactin (02/24/2018 9:50 AM EDT) Prolactin 3.6(L) 4.0 - 15.2 ng/mL [facility] Blood specimen (specimen) 02/24/2018 9:50 AM EDT 02/24/2018 9:59 AM EDT Narrative Resulting Agency Comment Spec In Lab Julio Turcios MD CHEMISTRY ORDERAB LES [facility] [place] [address] documented in this encounter Visit Diagnoses Diagnosis Gynecomastia, male Hypertrophy of breast Hypogonadism in male Pituitary adenoma Benign neoplasm of pituitary gland and craniopharyngeal duct (pouch) documented in this encounter Care Teams Histology Technologist Relationship Specialty Start Date End Date Dilma aGrrett MD [address] [place] [id number] PCP - General Family Medicine 07/21/17 documented as of this encounter
--- OUTSIDE RECORDS SUMMARY | 2024-02-18 02:16 | XMS_ITS | Encounter Summary ---
Author [place] [address] Care Team Providers Care Glass Smoother Name Role Phone Dilma Garrett MD Primary Care Provider [phone] Encounter Details Date Type Department Care Team (Late st Contact Info) Description 10/21/2017 Notes Only [place] [phone] Yvrose Blankenship RN Social History Tobacco Use Types Packs/Day Years Used Date Smoking Tobacco: Never Smokeless Tobacco: Never Sex and Gender Information Value Date Recorded Sex Assigned at Not on file Gender Identity Not on file Sexual Orientation Not on file documented as of this encounter Progress Notes * Yvrose Blankenship, BETI - 10/21/2017 3:09 PM EDT Faxed letter written by Dr. Sarkar to patient's mother on 10/21/17 w/confimation. Had copy mailed to patient. documented in this encounter Plan of Treatment Not on file documented as of this encounter Visit Diagnoses Not on filedocumented in this encounter Care Teams Glass Smoother Relationship Specialty Start Date End Date Dilma Garrett MD [address] [place], [place] [id number] PCP - General Family Medicine 07/21/17 documented as of this encounter
--- OUTSIDE RECORDS SUMMARY | 2024-02-18 02:16 | XMS_ITS | Encounter Summary ---
[place] [address] Care Team Providers Care Multifocal Button Inspector Name Role Phone Dilma Garrett MD Primary Care Provider [phone] Reason for Referral * Diagnostic Test (Routine) - Closed Specialty Diagnoses / Procedures Referred By Memo bain Referred To Contact Radiology Diagnoses Pituitary abnormality Procedures MRI Brain wwo Contrast (Generic) Kash Jones MD [facility] [place] [address] [place] [address] Referral ID Status Reason Start Date Expiration Date V isits Requested Visits Authorized [id number] Closed Specialty Service Requested 11/07/2018 02/05/2019 1 1 Reason for Visit * Reason Comments Pituitary Problem Gynecomastia Encounter Details Date Type Department Care Team (Late st Contact Info) Description 11/07/2018 8:00 AM EDT Office [place] [id number] Kash Jones MD [facility] [place] [address] Pituitary abnormality; Gynecomastia, male; History of hypogonadism Social History Tobacco Use Types Packs/Day Years Used Date Smoking Tobacco: Never Smokeless Tobacco: Never Sex and Gender Information Value Date Recorded Sex Assigned at Not on file Gender Identity Not on file Sexual Orientation Not on file documented as of this encounter Last Filed Vital Signs Vital Sign Reading Time Taken Comments Blood Pressure 130/71 11/07/2018 7:46 AM EDT Pulse 84 11/07/2018 7:46 AM EDT Temperature 36.4 ??C (97.5 ??F) 11/07/2018 7:46 AM ED T Respiratory Rate - - Oxygen Saturation 99% 11/07/2018 7:46 AM EDT Inhaled Oxygen Concentration - - Weight 78.5 kg (173 lb) 11/07/2018 7:46 AM EDT Height 180.3 cm (5' 11) 11/07/2018 7:46 AM EDT Body Mass Index 24.13 11/07/2018 7:46 AM EDT documented in this encounter Progress Notes * Kash Jones MD - 11/07/2018 8:00 AM EDT Images from the original note were not included. Endocrinology Outpatient Note Name: Dagoberto Valenzuela Date: 11/07/18 Chief Complaint Patient presents with ??? Pituitary Problem ??? Gynecomastia HPI: Dagoberto Valenzuela is a 28 y.o.male with PMH significant for history of hypogonadism in the setting of a mildly elevated prolactin and a 0.4 X 0.2 cm hypointense area in the right aspect of the pituitary gland who comes to the clinic for follow up. I saw the patient the first time 08/04/2017 for hot flashes and irritability in the setting of a pituitary abnormality. 1.5 months prior to that appointment he had noticed a left sided breast lump, washaving fatigue and feeling still. He didn't have visual symptoms. Denied morning erections. We did blood work for adrenal insufficiency which was negative, did IGF-1 which was elevated but had GH suppression on OGT. Prolactin was mildly elevated 34.8. He followed up 09/17/2017 and he continued to feel tired and still having hot flashes. Left sided gynecomastia had gone down a little. We recommended treating with cabergoline in the setting of mildly elevated prolactin. Testosterone normalized on 09/14/2017 laboratory result. I saw him last time 02/24/2018 and at the time he felt the nipple swelling had gone down (about 40%) and denied any pain. The morning erections and sexual function had improved from last time. On this appointment we would consider repeating brain MRI for previously pituitary abnormality and stopping the DA. We decreased the cabergoline to once a week (from 0.25 mg twice a week) and checked the prolactin ~ 3 months after (2.9). Per the patient every once in while he is having fatigue but has improved. The gynecomastia has gone down more, and is not tender (you can slightly tell it is there; not a big deal). Denies having any issues with morning erections or terminal hair. Denies any visual symptoms, no double vision or temporal hemianopsia. Denies any palpitations. No anxiety or insomnia. No heat intolerance or sweats. ROS: as per HPI No past medical history on file. No past surgical history on file. No Known Allergies Current Outpatient Medications: ??? cabergoline (DOSTINEX) 0.5 mg Tablet, Take 0.5 tablets by mouth once a week., Disp: 45 tablet, Rfl: 3 Physical Exam: BP 130/71 Pulse 84 Temp 36.4 ??C (97.5 ??F) (Oral) Ht 180.3 cm (5' 11) Wt 78.5 kg (173 lb) SpO2 99% BMI 24.13 kg/m?? General appearance - alert, well appearing, and in no distress Neck - supple, no significant adenopathy Chest - clear to auscultation, no wheezes, rales or rhonchi, symmetric air entry, left sided 1.5 cmgynecomastia Heart - normal rate, regular rhythm, normal S1, S2, no murmurs, rubs, clicks or gallops Abdomen - soft, nontender, nondistended, no masses or organomegaly Neurological - alert, oriented, normal speech, no focal findings or movement disorder noted Extremities - peripheral pulses normal, no pedal edema, no clubbing or cyanosis Skin - normal coloration and turgor, no rashes, no suspicious skin lesions noted Male pattern hair distribution Labs: Ref. Range 08/05/2017 08:33 08/26/2017 13:57 [...] Range: 6 - 50 pg/mL 18 Imaging: Reviewed Assessment and plan: Dagoberto Valenzuela is a 28 y.o.male with PMH significant for history of hypogonadism in the setting of a mildly elevated prolactin and a 0.4 X 0.2 cm hypointense area in the right aspect of the pituitary gland who comes to the clinic for follow up. We discussed differential diagnosis of this right sided hypointense pituitary abnormality. Both thegynecomastia and the low testosterone have improved. He does not have any visual symptoms. Most importantly, it has been >1 yr since the last MRI therefore we will repeat a pituitary protocol MRI.Depending on the findings we would discuss about either continuing or stopping the cabergoline. If we decided to stop the cabergoline we would probably repeat prolactin, thyroid function and testosterone in the future. 1. Resolved transient hypogonadism Left sided gynecomastia Elevated prolactin (resolved) on cabergoline 0.4 X 0.2 cm hypointense area in the right aspect of the pituitary gland on MRI 07/2017 - will repeat pituitary brain MRI - depending on the findings we will either continue the cabergoline vs stop it (will discuss with the patient) - if we decided to stop the cabergoline we would probably check repeat prolactin and testosterone in the future - in the past free T4 was mildly elevated with normal TSH, we will repeat in the future Patient was seen and discussed with Attending Physician, Dr. Gallardo. Follow up in 6 months. Kash Velazquez MD Endocrinology, Diabetes and Metabolism Fellow Pager #[phone] 11/07/2018 * Filemon Gallardo MD - 11/07/2018 8:00 AM EDT I have seen the patient and reviewed Dr Archer's history and I agree with the details as written. The assessment and plan were formulated in discussion with me and I agree with them as documented. Review of systems as stated, otherwise it is negative Filemon Gallardo MD Compressor Assembleradmissions director Endocrinology Section [facility] documented in this encounter Plan of Treatment Not on file documented as of this encounter Results * MRI Brain wwo Contrast (Generic) (11/12/2018 10:45 AM EDT) Anatomical Region Laterality Modality Head Magnetic Resonan ce Impressions 11/12/2018 2:49 PM EDT No definite pituitary lesion. Sensitivity for microadenomas is higher with dynamic postcontrast imaging. We will arrange for the patient to return for additional imaging. Thank you for letting us participate in the care of this patient. For questions regarding this report, please contact the number below. ? Electronically signed by: Garcia Wheatley [facility] ([phone]), at 11/12/2018 2:49 PM Narrative 11/12/2018 2:49 PM EDT EXAMINATION: MRI BRAIN WWO CONTRAST (GENERIC) CLINICAL HISTORY: History of elevated prolactin, right sided hypointense pituitary abnormality TECHNIQUE: MRI of the brain was performed before and after the intravenous administration of 16cc Dotarem. Attention to the sella region with dedicated small FOV and Volumetric imaging. COMPARISON: MRI of the brain and pituitary gland 07/27/17. FINDINGS: The pituitary gland is normal in size. Normal posterior pituitary bright spot on T1-weighted images. Homogeneous enhancement on the postcontrast images. No lesions seen in the focus of abnormal hypoenhancement on the previous study. However, dynamic postcontrast images were not obtained. No abnormal signal or enhancement in the hypothalamus. The ventricles are unchanged in caliber. No abnormal signal in the mastoid air cells or paranasal sinuses. Procedure Note Garcia Wheatley MD - 11/12/2018 EXAMINATION: MRI BRAIN WWO CONTRAST (GENERIC) CLINICAL HISTORY: History of elevated prolactin, right sided hypointense pituitary abnormality TECHNIQUE: MRI of the brain was performed before and after the intravenousadministration of 16cc Dotarem. Attention to the sella region with dedicated small FOVand Volumetric imaging. COMPARISON: MRI of the brain and pituitary gland 07/27/17. FINDINGS: The pituitary gland is normal in size. Normal posterior pituitary brightspot on T1-weighted images. Homogeneous enhancement on the postcontrast images.No lesions seen in the focus of abnormal hypoenhancement on the previousstudy. However, dynamic postcontrast images were not obtained. No abnormal signal or enhancement in the hypothalamus. The ventriclesare unchanged in caliber. No abnormal signal in the mastoid air cells orparanasal sinuses. IMPRESSION No definite pituitary lesion. Sensitivity for microadenomas is higherwith dynamic postcontrast imaging. We will arrange for the patient to returnfor additional imaging. Thank you for letting us participate in the care of this patient. Forquestions regarding this report, please contact the number below. Electronically signed by: Garcia Wheatley [facility]([phone]), at 11/12/2018 2:49 PM Filemon Gallardo MD [facility] [place] documented in this encounter Visit Diagnoses Diagnosis Pituitary abnormality Unspecified disorder of the pituitary gland and its hypothalamic control Gynecomastia, male Hypertrophy of breast History of hypogonadism Personal history of other endocrine, metabolic, and immunity disorders Pituitary abnormality Unspecified disorder of the pituitary gland and its hypothalamic control documented in this encounter Care Teams Multifocal Button Inspector Relationship Specialty Start Date End Date Dilma Garrett MD [address] [place] [address] PCP - General Family Medicine 07/21/17 documented as of this encounter
--- OUTSIDE RECORDS SUMMARY | 2024-02-18 02:16 | XMS_ITS | Encounter Summary ---
[place] [address] Care Team Providers Care Cell Preparer Name Role Phone Dilma Garrett MD Primary Care Provider [phone] Encounter Details Date Type Department Care Team (Late st Contact Info) Description 11/07/2018 Tele[place] [phone] Dee Briggs Social History Tobacco Use Types Packs/Day Years Used Date Smoking Tobacco: Never Smokeless Tobacco: Never Sex and Gender Information Value Date Recorded Sex Assigned at Not on file Gender Identity Not on file Sexual Orientation Not on file documented as of this encounter Miscellaneous Notes * Telephone Encounter - Dee Briggs - 11/07/2018 8:51 AM EDT The patient came to the Exit desk. The appropriate Radiology Safety questions were asked and the patient was scheduled for his MRI. documented in this encounter Plan of Treatment Not on file documented as of this encounter Visit Diagnoses Not on filedocumented in this encounter Care Teams Cell Preparer Relationship Specialty Start Date End Date Dilma Garrett MD [address] [place] [address] PCP - General Family Medicine 07/21/17 documented as of this encounter
--- OUTSIDE RECORDS SUMMARY | 2024-02-18 02:16 | XMS_ITS | Encounter Summary ---
[place] [address] Care Team Providers Care Cut Order Hand Name Role Phone Dilma Garrett MD Primary Care Provider Encounter Details Date Type Department Care Team (Late st Contact Info) Description 08/26/2017 Orders [place] [address] Kash Jones MD [facility] [place] [address] Adrenal insufficiency Social History Tobacco Use Types Packs/Day Years Used Date Smoking Tobacco: Never Smokeless Tobacco: Never Sex and Gender Information Value Date Recorded Sex Assigned at Not on file Gender Identity Not on file Sexual Orientation Not on file documented as of this encounter Plan of Treatment Not on file documented as of this encounter Visit Diagnoses Diagnosis Adrenal insufficiency Glucocorticoid deficiency documented in this encounter Care Teams Cut Order Hand Relationship Specialty Start Date End Date Dilma Garrett MD [address] [place] [address] PCP - General Family Medicine 07/21/17 documented as of this encounter
--- OUTSIDE RECORDS SUMMARY | 2024-02-18 02:16 | XMS_ITS | Encounter Summary ---
[place] [address] Care Team Providers Care Sql Tech Name Role Phone Dilma Garrett MD Primary Care Provider [phone] Reason for Referral * Diagnostic Test (Routine) - Closed Specialty Diagnoses / Procedures Referred By Contac t Referred To Contact Radiology Diagnoses Pituitary abnormality Procedures MRI Brain wwo Contrast (Generic) Kash Jones MD [facility] [place] [address] [place] [address] Referral ID Status Reason Start Date Expiration Date V isits Requested Visits Authorized [id number] Closed Specialty Service Requested 11/07/2018 02/05/2019 1 1 Reason for Visit * Diagnostic Test (Routine) - Closed Specialty Diagnoses / Procedures Referred By Contac t Referred To Contact Radiology Diagnoses Pituitary abnormality Procedures MRI Brain wwo Contrast (Generic) Kash Jones MD [facility] [place] [address] [place] [address] Referral ID Status Reason Start Date Expiration Date V isits Requested Visits Authorized [id number] Closed Specialty Service Requested 11/07/2018 02/05/2019 1 1 Encounter Details Date Type Department Care Team (Latest Contact Info) Description 11/12/2018 9:31 AM EDT - 11/12/2018 11:59 PM EDT Hospital Encounter MRI [place] [facility] [place] [address] Filemon Gallardo MD [facility] [place] [address] Pituitary abnormality Discharge Disposition: Home Social History Tobacco Use Types Packs/Day Years Used Date Smoking Tobacco: Never Smokeless Tobacco: Never Sex and Gender Information Value Date Recorded Sex Assigned at Not on file Gender Identity Not on file Sexual Orientation Not on file documented as of this encounter Medications at Time of Discharge Medication Sig Dispensed Refills Start Date End Date cabergoline (DOSTINEX) 0.5 mg TabletIndications:Gynec omastia, male,Hypogonadism in male Take 0.5 tablets by mouth once a week. 45 tablet 3 02/24/2018 06/29/2019 documented as of this encounter Plan of Treatment Not on file documented as of this encounter Procedures Procedure Name Priority Date/Time Associated Diagnosis Comments MRI BRAIN WWO CONTRAST (GENERIC) Routine 11/12/2018 10:45 AM EDT Pituitary abnormality documented in this encounter Results * MRI Brain wwo [...] report, please contact the number below. ? Narrative 11/12/2018 2:49 PM EDT EXAMINATION: MRI [...] this report, please contact the number below. Filemon Gallardo MD IM[facility] MRI ORDERABLES documented in this encounter Visit Diagnoses Diagnosis Pituitary abnormality Unspecified disorder of the pituitary gland and its hypothalamic control documented in this encounter Administered Medications Inactive Administered Medications - up to 3 most recent administrations Medication Order MAR Action Action Date Dose Rate Site gadoterate meglumine (DOTAREM) 0.5 mmol/mL (376.9 mg/mL) injection 0-100 mL 0-100 mL, Intravenous, ONCE PRN, 1 dose, Starting on 11/12/18 at 1043, Until 11/12/18 at 1028, Per Protocol, Radiology Contrast, Routine Given 11/12/2018 10:28 AM EDT 16 mLs documented in this encounter Care Teams Sql Tech Relationship Specialty Start Date End Date Dilma Garrett MD [address] [place] [address] PCP - General Family Medicine 07/21/17 documented as of this encounter
--- OUTSIDE RECORDS SUMMARY | 2024-02-18 02:16 | XMS_ITS | Encounter Summary ---
[place] [address] Care Team Providers Care Director [facility] Name Role Phone Dilma Garrett MD Primary Care Provider [phone] Encounter Details Date Type Department Care Team (Latest Contact Info) Description 09/14/2017 8:15 AM EDT Laboratory Appointment Lab [address] [place] [id number] Hypogonadism in male Social History Tobacco Use [...] Procedure Name Priority Date/Time Associated Diagnosis Comments TESTOSTERONE, TOTAL AND FREE Routine 09/14/2017 8:16 AM EDT Hypogonadism in male IRON Routine 09/14/2017 8:16 AM EDT Hypogonadism in male LUTEINIZING HORMONE Routine 09/14/2017 8 :16 AM EDT Hypogonadism in male FOLLICLE STIMULATING HORMONE Routine 09/14/2017 8:16 AM EDT Hypogonadism in male FERRITIN Routine 09/14/2017 8:16 AM EDT Hypogonadism in male documented in this encounter Results * Luteinizing Hormone (09/14/2017 8:16 AM EDT) Luteinizing Hormone 2.7 1.7 - 8.6 mlU/ML [facility] Comment: Reference ranges: ?? Females ?? Follicular: ? 2.4-12.6 mIU/mL ?? Ovulation: ?14.0-95.6 mIU/mL ?? Luteal: ? 1.0-11.4 mIU/mL ?? Postmenopausal: ? 7.7-58.5 mIU/mL Blood specimen (specimen) 09/14/2017 8:16 AM EDT 09/14/2017 8:38 AM EDT Narrative Resulting Agency Comment Spec In Lab Karine Hua MD CHEMISTRY ORDERABLES Performing Organization Address [facility] de Phone Number [facility] [place] [address] * Follicle Stimulating Hormone (09/14/2017 8:16 AM EDT) Follicle Stimulating Hormone 1.6 1.5 - 12.4 mlU/ML [facility] Comment: Reference Ranges: Females: Follicular: ? 3.5-12.5 mIU/mL Ovulation: ?4.7-21.5 mIU/mL Luteal: ? 1.7-7.7 mIU/mL Postmenopausal: 25.8-134.8 mIU/mL Blood specimen (specimen) 09/14/2017 8:16 AM EDT 09/14/2017 8:38 AM EDT Narrative Resulting Agency Comment Spec In Lab Karine Hua MD CHEMISTRY ORDERABLES Performing Organization Address [facility] Co de Phone Number [facility] [place] [address] * Iron (09/14/2017 8:16 AM EDT) Iron 55 45 - 160 mcg/dL [facility] Blood specimen (specimen) 09/14/2017 8:16 AM EDT 09/14/2017 8:38 AM EDT Narrative Resulting Agency Comment Spec In Lab Karine Hua MD CHEMISTRY ORDERABLES Performing Organization Address [facility] Co de Phone Number [facility] [place] [address] * (ABNORMAL) Ferritin (09/14/2017 8:16 AM EDT) [facility] Ferritin 27(L) 30 - 400 ng/mL [facility] Comment: Pediatric reference ranges not verified at [facility] interpret with caution. Reference ranges for females greater than 50 years of age approach values for men, i.e., 30-400 ng/mL. Blood specimen (specimen) 09/14/2017 8:16 AM EDT 09/14/2017 8:38 AM EDT Narrative Resulting Agency Comment Spec In Lab Karine Hua MD CHEMISTRY ORDERABLES Performing Organization Address [facility] Co de Phone Number [facility] [place] [address] * Testosterone, total and free (09/14/2017 8:16 AM EDT) [facility] Testo Total 424 250 - 1100 ng/dL [facility] Comment: For more information on this test, go to http://education.Bamatea/faq/ TotalTestosteroneLCMSMS This test was developed and its analytical performance characteristics have been determined by Mr [employer] [place], [place]. It has not been cleared or approved by the U.S. Food and Drug Administration. This assay has been validated pursuant to the CLIA regulations and is used for clinical purposes. Testo Free (AUGUST) 75.5 35.0 - 155.0 pg/mL [facility] Comment: This test was developed and its analytical performance characteristics have been determined by Mr [employer] [place], [place]. It has not been cleared or approved by the U.S. Food and Drug Administration. This assay has been validated pursuant to the CLIA regulations and is used for clinical purposes. Test Performed by [facility] [place], [facility], [address] [place] [address] Lucius Mendoza M.D., Ph.D., Director of Laboratories , CLIA [id number] Blood specimen (specimen) 09/14/2017 8:16 AM EDT 09/14/2017 11:37 AM EDT Narrative Resulting Agency Comment Spec In Lab Karine Hua MD LAB SEND OUT ORDERAB LES [facility] [place] [address] documented in this encounter Visit Diagnoses Diagnosis Hypogonadism in male documented in this encounter Care Teams Director [facility] Relationship Specialty Start Date End Date Dilma Garrett MD [address] [place] [address] PCP - General Family Medicine 07/21/17 documented as of this encounter
--- OUTSIDE RECORDS SUMMARY | 2024-02-18 02:16 | XMS_ITS | Encounter Summary ---
Author Organization [place] [address] Care Team Providers Care Mixing Machine Tender Name Role Phone Dilma Garrett MD Primary Care Provider [phone] Encounter Details Date Type Department Care Team (Latest Contact Info) Description 08/26/2017 2:15 PM EDT Clinical [place] [phone] Nurse, Endocrinology NONE Adrenal insufficiency Social History Tobacco Use Types Packs/Day Years Used Date Smoking Tobacco: Never Smokeless Tobacco: Never Sex and Gender Information Value Date Recorded Sex Assigned at Not on file Gender Identity Not on file Sexual Orientation Not on file documented as of this encounter Progress Notes * Aggie Duckworth LPN - 08/26/2017 2:15 PM EDT Cosyntropin 0.25 mg administered IM in left deltoid by Mariah Leger CMA per order. Site negativebefore, and after injection. Patient is aware to return to lab in approx 1 hr for level draw. documented in this encounter Plan of Treatment Not on file documented as of this encounter Visit Diagnoses Diagnosis Adrenal insufficiency Glucocorticoid deficiency documented in this encounter Administered Medications Inactive Administered Medications - up to 3 most recent administrations Medication Order MAR Action Action Date Dose Rate Site cosyntropin (CORTROSYN) injection 0.25 mg 0.25 mg, Intravenous, ONCE, 1 dose, On Angie 08/26/17 at 1430, Routine Given 08/26/2017 2:25 PM EDT 0.25 mg Left Arm documented in this encounter Care Teams Mixing Machine Tender Relationship Specialty Start Date End Date Dilma Garrett MD [address] [place] [address] PCP - General Family Medicine 07/21/17 documented as of this encounter
--- OUTSIDE RECORDS SUMMARY | 2024-02-18 02:16 | XMS_ITS | Encounter Summary ---
[place] [address] Care Team Providers Care Entry Level Marketing Representative Name Role Phone Dilma Garrett MD Primary Care Provider [phone] Encounter Details Date Type Department Care Team (Late st Contact Info) Description 08/24/2017 Telephone [place] [phone] Yvrose Blankenship RN Social History Tobacco Use Types Packs/Day Years Used Date Smoking Tobacco: Never Smokeless Tobacco: Never Sex and Gender Information Value Date Recorded Sex Assigned at Not on file Gender Identity Not on file Sexual Orientation Not on file documented as of this encounter Miscellaneous Notes * Telephone Encounter - Yvrose Blankenship RN - 08/24/2017 4:27 PM EDT Mother called triage to find out where son is to have blood work done. Mr. Valenzuela picked up phone.He plans to come here this to have cortisol drawn. documented in this encounter Plan of Treatment Not on file documented as of this encounter Visit Diagnoses Not on filedocumented in this encounter Care Teams Entry Level Marketing Representative Relationship Specialty Start Date End Date Dilma Garrett MD [address] [place] [address] PCP - General Family Medicine 07/21/17 documented as of this encounter
--- OUTSIDE RECORDS SUMMARY | 2024-02-18 02:16 | XMS_ITS | Encounter Summary ---
[place] [address] Care Team Providers Care Lgsw Name Role Phone Dilma Garrett MD Primary Care Provider [phone] Encounter Details Date Type Department Care Team (Latest Contact Info) Description 08/26/2017 1:50 PM EDT Laboratory Appointment Lab [address] [place] [id number] Low serum cortisol level Social History Tobacco [...] Procedure Name Priority Date/Time Associated Diagnosis Comments CORTISOL Routine 08/26/2017 3:22 PM EDT Low serum cortisol level CORTISOL Routine 08/26/2017 1:57 PM EDT Low serum cortisol level documented in this encounter Results * Cortisol (08/26/2017 3:22 PM EDT) Cortisol 24.1 mcg/dL [facility] Comment: Reference ranges: ??AM (6-10am): ??4.8-19.5 mcg/dL ??PM (4-8pm) : ??2.5-11.9 mcg/dL Blood specimen (specimen) 08/26/2017 3:22 PM EDT 08/26/2017 3:33 PM EDT Narrative Resulting Agency Comment Spec In Lab Karine Hua MD CHEMISTRY ORDERABLES Performing Organization Address City/[facility] Co de Phone Number [facility] [place] [address] * Cortisol (08/26/2017 1:57 PM EDT) Cortisol 9.2 mcg/dL [facility] Comment: Reference ranges: ??AM (6-10am): ??4.8-19.5 mcg/dL ??PM (4-8pm) : ??2.5-11.9 mcg/dL Blood specimen (specimen) 08/26/2017 1:57 PM EDT 08/26/2017 2:08 PM EDT Narrative Resulting Agency Comment Spec In Lab Karine Hua MD CHEMISTRY ORDERABLES Performing Organization Address [facility] Co de Phone Number [facility] [place] [address] documented in this encounter Visit Diagnoses Diagnosis Low serum cortisol level Glucocorticoid deficiency documented in this encounter Care Teams Lgsw Relationship Specialty Start Date End Date Dilma Garrett MD [address] [place] [address] PCP - General Family Medicine 07/21/17 documented as of this encounter
--- OUTSIDE RECORDS SUMMARY | 2024-02-18 02:16 | XMS_ITS | Encounter Summary ---
Author Organization [facility] [place] [address] Care Team Providers Care Petroleum Transport Driver Name Role Phone Dilma Garrett MD Primary Care Provider [phone] Encounter Details Date Type Department Care Team (Late st Contact Info) Description 08/31/2017 Orders [place] [address] Kash Jones MD [facility] [place] [address] Elevated insulin-like growth factor 1 (IGF-1) level Social History Tobacco Use Types Packs/Day Years Used Date Smoking Tobacco: Never Smokeless Tobacco: Never Sex and Gender Information Value Date Recorded Sex Assigned at Not on file Gender Identity Not on file Sexual Orientation Not on file documented as of this encounter Plan of Treatment Not on file documented as of this encounter Results * Growth hormone (09/02/2017 7:37 AM EDT) Growth Hormone 0.1 ng/mL [facility] Comment: Expected results (Basal/Unstimulated): < 10 ng/mL (all ages) GH concentration in response to stimulation should rise by: ??>10 ng/mL (Insulin) ??>7.5 ng/mL (Arginine) GH secretion is episodic and pulsatile; transient levels up to 40 ng/mL have been observed in healthy individuals. References: Stimulation test information from: Renetta BALLRAD, Handy ER, Adonis DE, eds. Brooke Textbook of Clinical Chemistry and Molecular Diagnostics. 4th ed. [place]:Memo Gottlieb,2006:2272. Basal/Unstimulated Reference Interval from: IDS-iSYS Human Growth Hormone (hGH)[id number], 2011-04-01 Growth H. Time Random [facility] Blood specimen (specimen) 09/02/2017 7:37 AM EDT 09/02/2017 11:17 AM EDT Narrative Resulting Agency Comment Spec In Lab Karine Hua MD CHEMISTRY ORDERABLES [facility] [place] [address] documented in this encounter Visit Diagnoses Diagnosis Elevated insulin-like growth factor 1 (IGF-1) level Other and unspecified nonspecific immunological findings documented in this encounter Care Teams Petroleum Transport Driver Relationship Specialty Start Date End Date Dilma Garrett MD [address] [place] [id number] PCP - General Family Medicine 07/21/17 documented as of this encounter
--- OUTSIDE RECORDS SUMMARY | 2024-02-18 02:17 | XMS_ITS | Encounter Summary ---
Author Organization Formerly [facility] Address [facility] [place] [address] Care Team Providers Care Potato Bucker Name Role Phone Dilma Garrett MD Primary Care Provider [phone] Reason for Visit * Reason Comments Gynecomastia with hot flashes and irritability Brain Tumor * Consultation (Routine) - Closed Specialty Diagnoses / Procedures Referred By Memo bain Referred To Contact Endocrinology Diagnoses gynecomastia, hot flashes, irritability Procedures consult and treat StressPayton carney APRN [address] [place] [address] [facility] [address] [place] [phone] Referral ID Status Reason Start Date Expiration Date Visits Re quested Visits Authorized [id number] Closed 07/23/2017 07/23/2018 1 1 Encounter Details Date Type Department Care Team (Late st Contact Info) Description 08/04/2017 11:00 AM EDT Office [place] [phone] Karine Hua MD [facility] [place] [address] Kash Jones MD [facility] [place] [address] Pituitary abnormality; Pathologic high serum prolactin; Gynecomastia, male; Hypogonadism in male Social History Tobacco Use Types Packs/Day Years Used Date Smoking Tobacco: Never Smokeless Tobacco: Never Sex and Gender Information Value Date Recorded Sex Assigned at Not on file Gender Identity Not on file Sexual Orientation Not on file documented as of this encounter Last Filed Vital Signs Vital Sign Reading Time Taken Comments Blood Pressure 118/79 08/04/2017 11:22 AM EDT Pulse 70 08/04/2017 11:22 AM EDT Temperature - - Respiratory Rate - - Oxygen Saturation - - Inhaled Oxygen Concentration - - Weight 72.6 kg (160 lb) 08/04/2017 11:22 AM EDT Height 180.3 cm (5' 11) 08/04/2017 11:22 AM EDT Body Mass Index 22.32 08/04/2017 11:22 AM EDT documented in this encounter Patient Instructions * Patient Instructions* Kash Jones MD - 08/04/2017 11:00 AM EDT 1. Please come to the lab for blood work between 8-9 am 2. I will call you with the results 3. Once we get the results we will talk about starting cabergoline to decrease the prolactin, and make the pituitary adenoma shrink documented in this encounter Progress Notes * Kash Jones MD - 08/04/2017 11:00 AM EDT Images from the original note were not included. Endocrinology Outpatient Note Name: Dagoberto Valenzuela Date: 08/04/17 Chief Complaint Patient presents with ??? Gynecomastia with hot flashes and irritability ??? Brain Tumor HPI: Dagoberto Valenzuela is a 27 y.o.male with no significant PMH who comes to the clinic for gynecomastia, hot flashes and irritability in the setting of a pituitary mass. Per the patient about 1.5 month ago he notice a left breast lump, he then started feeling like he had a fever, with fatigue and has been still. Some days he feels fine and some days he can barely do anything because of decreased energy Denies cold intolerance. No constipation. Skin is not more dry than usual and denies hair loss. He has been loosing weight- about 8-10 lbs. Denies urinating more than usual or drinking more fluids. Denies having any visual symptoms- no tunneled vision, or double vision. He has intermittent headache around once a week. Denies any nipple discharge. Denies any abdominal pain. After he had a cholecystectomy 2 years ago, he has diarrhea. His appetite is ok. Sometimes he wakes up feeling weak His hyatt is not growing as fast. He is not sexually active. He is having fewer morning erection- For <1 month. Denies any trauma to testicles. ROS: As per HPI No past medical history on file. No past surgical history on file. No Known Allergies Family History of Endocrinopathies: maternal aunt and grand mother hypothyroidism Social History: - Occupation: [employer] - Lives with: mother and mother's boyfriend - Smokes: no, Alcohol: very little, Drug use: no No current outpatient prescriptions on file. Physical Exam: BP 118/79 Pulse 70 Ht 180.3 cm (5' 11) Wt 72.6 kg (160 lb) BMI 22.32 kg/m2 General appearance - alert, well appearing, and in no distress Neck - supple, no significant adenopathy Chest - clear to auscultation, no wheezes, rales or rhonchi, symmetric air entry, left sided gynecomatia Heart - normal rate, regular rhythm, normal S1, S2, no murmurs, rubs, clicks or gallops Abdomen - soft, nontender, nondistended, no masses or organomegaly Neurological - alert, oriented, normal speech, no focal findings or movement disorder noted, normalvisual worley without deficit Extremities - peripheral pulses normal, no pedal edema, no clubbing or cyanosis Skin - normal coloration and turgor, no rashes, no suspicious skin lesions noted Labs: Total Testosterone: 141 Estradiol: 25 LH: 2 HC TSH: 1.02 Imaging: MRI pituitary: 0.4 X 0.2 cm hypointense lesion in right aspect of pituitary gland. Pituitary mass should be considered. Mammogram Assessment and plan: Dagoberto Valenzuela is a 27 y.o.male with no significant PMH who comes to the clinic for gynecomastia,hot flashes and irritability in the setting of a pituitary mass. Patient has evidence from blood work that has been done of secondary hypogonadism and a high prolactin (although we don't have the result). MRI showed a 0.4 X 0.2 hypointense lesion in the right aspect of pituitary gland. From historyunlikely he has any other hormonal deficiency however we will do full pituitary work up including: ACTH, morning cortisol, IGF-1, LH, prolactin, TSH and FT4. We will do BMP for Na (but not concerningfor DI from history). If prolactin is significantly elevated (and concerning for prolactin producing pituitary adenoma) we would treat with DA agonist (carbergoline) and hope his hypogonadism resolves. Left sided gynecomastia might get better but we will reassess in the future. His pituitary mass is small and he does not have any visual deficits and from imaging not compressing on optic chiasm. 1. 0.4 X 0.2 cm hypointense lesion in right aspect of pituitary gland Secondary hypogonadism Left sided gynecomastia High prolactin No visual symptoms - will do rest of pituitary work up and replace if hypofunctioning - if prolactin is elevated and concerning for functioning pituitary adenoma would start DA agonist and repeat prolactin and testosterone in the future - will have to reassess gynecomastia - patient will need repeat MRI in the future Patient was seen and discussed with Attending Physician, Dr. Hua Follow up in 3 months. Kash Velazquez MD Endocrinology, Diabetes and Metabolism Fellow Pager #[phone] 08/04/2017 * Karine Hua MD - 08/04/2017 11:00 AM EDT I saw this patient with Dr. Gianni Velazquez. I reviewed the carcamo portions of the history and physical exam, and reviewed pertinent lab data. I answered all patient questions. We reassured the patient that pituitary adenomas are quite common and are benign (i.e. Not cancer), but can cause health effects if they are producing excess pituitary hormone(s), causing a pituitary hormone deficiency, or large enough to cause mass effect on the optic nerves. His pituitary adenoma is very small - a microadenoma, with no threat to his optic nerves, but could still be causing hormonal aberration that mightexplain his gynecomastia. We will complete the biochemical evaluation of his pituitary axes today. I was involved in all medical decision making and agree with this plan. KARINE HUA MD Bridge Operator Slipballistic technician Section of Endocrinology [facility] [place] documented in this encounter Plan of Treatment Not on file documented as of this encounter Results * Luteinizing Hormone (08/05/2017 8:33 AM EDT) Luteinizing Hormone 2.0 1.7 - 8.6 mlU/ML [facility] Comment: Reference ranges: ?? Females ?? Follicular: ? 2.4-12.6 mIU/mL ?? Ovulation: ?14.0-95.6 mIU/mL ?? Luteal: ? 1.0-11.4 mIU/mL ?? Postmenopausal: ? 7.7-58.5 mIU/mL Blood specimen (specimen) 08/05/2017 8:33 AM EDT 08/05/2017 8:37 AM EDT Narrative Resulting Agency Comment Spec In Lab Karine Hua MD CHEMISTRY ORDERABLES [facility] [place] [address] * (ABNORMAL) Follicle Stimulating Hormone (08/05/2017 8:33 AM EDT) Follicle Stimulating Hormone 1.3(L) 1.5 - 12.4 mlU/ML [facility] Comment: Reference Ranges: Females: Follicular: ? 3.5-12.5 mIU/mL Ovulation: ?4.7-21.5 mIU/mL Luteal: ? 1.7-7.7 mIU/mL Postmenopausal: 25.8-134.8 mIU/mL Blood specimen (specimen) 08/05/2017 8:33 AM EDT 08/05/2017 8:37 AM EDT Narrative Resulting Agency Comment Spec In Lab Karine Hua MD CHEMISTRY ORDERABLES Performing Organization Address City/[facility]/ZIP Co de Phone Number [facility] [place] [address] * (ABNORMAL) Prolactin (08/05/2017 8:33 AM EDT) Prolactin 34.8(H) 4.0 - 15.2 ng/mL [facility] Blood specimen (specimen) 08/05/2017 8:33 AM EDT 08/05/2017 8:37 AM EDT Narrative Resulting Agency Comment Spec In Lab Karine Hua MD CHEMISTRY ORDERABLES Performing Organization Address [facility] Co de Phone Number [facility] [place] [address] * Basic Metabolic Panel (non-fasting) (08/05/2017 8:33 AM EDT) Glucose 101 65 - 199 mg/dL [facility] Comment:Diabetes: >=200 mg/d L plus symptoms Blood Urea Nitrogen 12 10 - 20 mg/dL [facility] Creatinine 0.87 0.80 - 1.50 mg/dL [facility] Sodium 140 135 - 145 mmol/L [facility] Potassium 3.9 3.5 - 5.0 mmol/L [facility] Comment: Please note: ??Patients with WBC >100,000 may have falsely elevated Potassium levels. ??For accurate Potassium quantification in these patients send serum separator tube (gold top) for subsequent determinations. ??Contact the Clinical Chemistry Laboratory if there are any questions. Chloride 100 98 - 107 mmol/L [facility] Carbon Dioxide 25 22 - 31 mmol/L [facility] Anion Gap 15 5 - 15 mmol/L [facility] Calcium 9.4 8.5 - 10.5 mg/dL [facility] Est Glomerular Filtration Rate >60 >=60 [facility] Comment: The reported eGFR should be multiplied by 1.2 for patients. The MDRD is not an appropriate measure of renal function for patients with body mass extremes or in patients with acute kidney failure. http://[employer]/DHnkdep http://[employer]/DHMCnkf Blood specimen (specimen) 08/05/2017 8:33 AM EDT 08/05/2017 8:37 AM EDT Narrative Resulting Agency Comment Spec In Lab Karine Hua MD CHEMISTRY ORDERABLES Performing Organization Address City/[facility]/ZIP Co de Phone Number [facility] [place] [address] * (ABNORMAL) T4, free (08/05/2017 8:33 AM EDT) Free T4 1.71(H) 0.93 - 1.70 ng/dL [facility] Blood specimen (specimen) 08/05/2017 8:33 AM EDT 08/05/2017 8:37 AM EDT Narrative Resulting Agency Comment Spec In Lab Karine Hua MD CHEMISTRY ORDERABLES Performing Organization Address City/[facility]/ZIP Co de Phone Number [facility] [place] [address] * TSH (08/05/2017 8:33 AM EDT) Thyroid Stimulating Hormone 1.23 0.27 - 4.20 mlU/ML [facility] Blood specimen (specimen) 08/05/2017 8:33 AM EDT 08/05/2017 8:37 AM EDT Narrative Resulting Agency Comment Spec In Lab Karine Hua MD CHEMISTRY ORDERABLES Performing Organization Address City/[facility]/ZIP Co de Phone Number [facility] [place] [address] * (ABNORMAL) Insulin Like GF-1 (08/05/2017 8:33 AM EDT) Pathologist [facility] Igf-1 Z-Score (MAY) 299(H) 98 - 282 ng/mL [facility] Comment: Edinson Scale Reference Intervals: Gender ?Edinson Stage ?IGF-1 [Somatomedin-C](ng/mL) Male ?I ?81-255 Male ? II ?106-432 Male ?III ?245-511 Male ? IV ?223-578 Male ?V ?227-518 Female ?I ?86-323 Female ? II ?118-451 Female ?III ?258-529 Female ? IV ?224-586 Female ?V ?188-512 IGF-1 [Somatomedin-C] Edinson Stage information from a cohort of 854 healthy children (including normal height and weight) were collected and analyzed on the IDS assay. ??All children were examined by an experienced physician and the pubertal stage was defined according to Edinson. Blood specimen (specimen) 08/05/2017 8:33 AM EDT 08/05/2017 11:31 AM EDT Narrative Resulting Agency Comment Spec In Lab Karine Hua MD LAB SEND OUT ORDERAB LES [facility] [place] [address] * Cortisol (08/05/2017 8:33 AM EDT) Cortisol 7.0 mcg/dL [facility] Comment: Reference ranges: ??AM (6-10am): ??4.8-19.5 mcg/dL ??PM (4-8pm) : ??2.5-11.9 mcg/dL Blood specimen (specimen) 08/05/2017 8:33 AM EDT 08/05/2017 8:37 AM EDT Narrative Resulting Agency Comment Spec In Lab Karine Hua MD CHEMISTRY ORDERABLES Performing Organization Address [facility] Co de Phone Number [facility] [place] [address] * ACTH (08/05/2017 8:33 AM EDT) [facility] Signature ACTH 18 6 - 50 pg/mL [facility] Comment: Reference range applies only to specimens collected between 7am-10am. Test Performed by [employer], [facility], [address] [place] [id number] Lucius Menodza M.D., Ph.D., Director of Laboratories , [facility] [id number] Blood specimen (specimen) 08/05/2017 8:33 AM EDT 08/05/2017 5:05 PM EDT Narrative Resulting Agency Comment Spec In Lab Karine Hua MD LAB SEND OUT ORDERAB LES Performing Organization Address [facility]/ZIP Co de Phone Number [facility] [place] [address] documented in this encounter Visit Diagnoses Diagnosis Pituitary abnormality Unspecified disorder of the pituitary gland and its hypothalamic control Pathologic high serum prolactin Gynecomastia, male Hypertrophy of breast Hypogonadism in male documented in this encounter Care Teams Potato Bucker Relationship Specialty Start Date End Date Dilma Garrett MD [address] [place] [address] PCP - General Family Medicine 07/21/17 documented as of this encounter
--- OUTSIDE RECORDS SUMMARY | 2024-02-18 02:17 | XMS_ITS | Encounter Summary ---
Author Organization [facility] Address [address] [place] [address] Care Team Providers Care Cap And Hat Production Supervisor Name Role Phone Dilma Garrett MD Primary Care Provider [phone] Encounter Details Date Type Department Care Team (Late st Contact Info) Description 08/01/2021 Lab Requisition [facility] Pathology & Laboratory Medicine - [address] [phone] Outr Resulting Lab, Provider Social History Tobacco Use Types Packs/Day Years Used Date Smoking Tobacco: Never Assessed Sex and Gender Information Value Date Recorded Sex Assigned at Not on file Gender Identity Not on file Sexual Orientation Not on file documented as of this encounter Plan of Treatment Not on file documented as of this encounter Procedures Procedure Name Priority Date/Time Associated Diagnosis Comments HEPATITIS C AB W REFLEX TO HCV RNA BY PCR Routine 08/01/2021 12:30 EDT HERPES SIMPLEX VIRUS (HSV) TYPE 1 & 2 AB, IGG Routine 08/01/2021 12:30 EDT documented in this encounter Results * HEPATITIS C AB W REFLEX TO HCV RNA BY PCR (08/01/2021 12:30 EDT) Hep C Antibody Negative Negative 08/04/2021 9:54 EDT [facility] Blood VENOUS BLOOD / Unknown 08/01/2021 12:30 EDT 08/01/2021 21:14 EDT Provider Outr Resulting Lab CHEMISTRY & BLOOD GAS ORDERABLES [facility] [address] [place] [address] * (ABNORMAL) HERPES SIMPLEX VIRUS (HSV) TYPE 1 & 2 AB, IGG (08/01/2021 12:30 EDT) HSV Type 1 Ab, IgG Positive( A) Negative 08/04/2021 12:14 EDT [facility] Comment:Indicates the presen ce of detectable IGG Antibody to HSV1 HSV Type 2 Ab, IgG Positive( A) Negative 08/04/2021 12:14 EDT [facility] Comment:Indicates the presen ce of detectable IGG antibody to HSV 2 Blood VENOUS BLOOD / Unknown 08/01/2021 12:30 EDT 08/01/2021 21:14 EDT Provider Outr Resulting Lab IMMUNOLOGY A ND SEROLOGY ORDERABLES Performing Organization Address City/State/[facility] Co de Phone Number [facility] [address] [place] [address] documented in this encounter Visit Diagnoses Not on filedocumented in this encounter Care Teams Cap And Hat Production Supervisor Relationship Specialty Start Date End Date Dilma Garrett MD PCP - General 05/30/15 documented as of this encounter
--- OUTSIDE RECORDS SUMMARY | 2024-02-18 02:17 | XMS_ITS | Encounter Summary ---
Author Organization [facility] Address [address] [place] [id number] Care Team Providers Care Weigh Machine Operator Name Role Phone Dilma Garrett MD Primary Care Provider [phone] Encounter Details Date Type Department Care Team (Latest Contact Info) Description 05/30/2015 9:25 EST - 05/30/2015 23:59 EST Hospital Encounter [address] [address] Unknown, Provider, Discharge Disposition: Home or Self Care Social History Tobacco Use Types Packs/Day Years Used Date Smoking Tobacco: Never Assessed Sex and Gender Information Value Date Recorded Sex Assigned at Not on file Gender Identity Not on file Sexual Orientation Not on file documented as of this encounter Discharge Disposition Disposition Code Departure Means Destination Home or Self [facility] documented in this encounter Plan of Treatment Not on file documented as of this encounter Visit Diagnoses Not on filedocumented in this encounter Care Teams Weigh Machine Operator Relationship Specialty Start Date End Date Dilma Garrett MD PCP - General 05/30/15 documented as of this encounter
--- OUTSIDE RECORDS SUMMARY | 2024-02-18 02:17 | XMS_ITS | Encounter Summary ---
[place] [address] Care Team Providers Care Mechanical Test Engineer Name Role Phone Dilma Garrett MD Primary Care Provider [phone] Encounter Details Date Type Department Care Team (Late st Contact Info) Description 08/13/2017 Telephone [place] [phone] Yvrose Blankenship, BETI Social History Tobacco Use Types Packs/Day Years Used Date Smoking Tobacco: Never Smokeless Tobacco: Never Sex and Gender Information Value Date Recorded Sex Assigned at Not on file Gender Identity Not on file Sexual Orientation Not on file documented as of this encounter Miscellaneous Notes * Telephone Encounter - Karine Hua MD - 08/13/2017 5:32 PM EDT Called home/cell number listed, got voice mail, left message stating that I will send a Petcube message with my thoughts on the results, and if there are any questions he or mom wish to discuss over thephone or if he doesn't have access to Petcube, to call back Wednesday08/16/17 between 9a and 1pm at which time I should be able to take the call directly. * Telephone Encounter - Yvrose Blankenship, RN - 08/13/2017 1:44 PM EDT Mother called triage line after viewing online lab results. Mother understands that Dr. Sarkar is away, but the patient is out of work right now, is not feeling well and has an upcoming vacation. He would really like to try a medication to decrease his prolactin level as soon as possible so he can go back to work and enjoy his upcoming vacation. Mother is asking if Dr. Hua could assist the patient while Dr. Sarkar is away. documented in this encounter Plan of Treatment Not on file documented as of this encounter Visit Diagnoses Not on filedocumented in this encounter Care Teams Mechanical Test Engineer Relationship Specialty Start Date End Date Dilma Garrett MD [address] [place] [address] PCP - General Family Medicine 07/21/17 documented as of this encounter
--- OUTSIDE RECORDS SUMMARY | 2024-02-18 02:17 | XMS_ITS | Encounter Summary ---
Author Organization [facility] Address [address] [place] [address] Care Team Providers Care Photocopying Equipment Repairer Name Role Phone Dilma Garrett MD Primary Care Provider [phone] Encounter Details Date Type Department Care Team (Late st Contact Info) Description 03/31/2023 Lab Requisition [facility] Pathology & Laboratory Medicine - [address] [id number] Outr Resulting Lab, Provider Social History Tobacco [...] Priority Date/Time Associated Diagnosis Comments PROLACTIN Routine 03/31/2023 13:04 EST documented in this encounter Results * PROLACTIN (03/31/2023 13:04 EST) Prolactin 16.4 2.1 - 17.7 ng/mL 03/31/2023 23:39 EST [facility] Blood VENOUS BLOOD / Unknown 03/31/2023 13:04 EST 03/31/2023 22:10 EST Provider Outr Resulting Lab CHEMISTRY & BLOOD GAS ORDERABLES [facility] [address] [place] [address] documented in this encounter Visit Diagnoses Not on filedocumented in this encounter Care Teams Photocopying Equipment Repairer Relationship Specialty Start Date End Date Dilma Garrett MD PCP - General 05/30/15 documented as of this encounter
--- OUTSIDE RECORDS SUMMARY | 2024-02-18 02:17 | XMS_ITS | Encounter Summary ---
[place] [address] Care Team Providers Care Home Care Music Therapist Name Role Phone Dilma Garrett MD Primary Care Provider [phone] Encounter Details Date Type Department Care Team (Late st Contact Info) Description 08/16/2017 Telephone [place] [phone] Yvrose Blankenship RN Social History Tobacco Use Types Packs/Day Years Used Date Smoking Tobacco: Never Smokeless Tobacco: Never Sex and Gender Information Value Date Recorded Sex Assigned at Not on file Gender Identity Not on file Sexual Orientation Not on file documented as of this encounter Miscellaneous Notes * Telephone Encounter - Yvrose Blankenship RN - 08/16/2017 3:09 PM EDT Mother called triage line regarding a fasting blood test (OGTT). R/c to mother and LM. documented in this encounter Plan of Treatment Not on file documented as of this encounter Visit Diagnoses Not on filedocumented in this encounter Care Teams Home Care Music Therapist Relationship Specialty Start Date End Date Dilma Garrett MD [address] [place] [address] PCP - General Family Medicine 07/21/17 documented as of this encounter
--- OUTSIDE RECORDS SUMMARY | 2024-02-18 02:17 | XMS_ITS | Encounter Summary ---
[place] [address] Care Team Providers Care Sole Tacker Name Role Phone Dilma Garrett MD Primary Care Provider Encounter Details Date Type Department Care Team (Late st Contact Info) Description 08/10/2017 [place]phone [place] [phone] Carli Packer LPN Social History Tobacco Use Types Packs/Day Years Used Date Smoking Tobacco: Never Smokeless Tobacco: Never Sex and Gender Information Value Date Recorded Sex Assigned at Not on file Gender Identity Not on file Sexual Orientation Not on file documented as of this encounter Miscellaneous Notes * Telephone Encounter - Carli Packer LPN - 08/10/2017 2:18 PM EDT R/c to mother who states we are waiting to hear about lab results Mother was advised that all lab results are not back yet. Message will be forward to Dr Sarkar and Dr Hua as Dr Coto is away but may need to wait until Dr Sarkar returns to clinic in ~2 weeks. documented in this encounter Plan of Treatment Not on file documented as of this encounter Visit Diagnoses Not on filedocumented in this encounter Care Teams Sole Tacker Relationship Specialty Start Date End Date Dilma Garrett MD [address] [place] [address] PCP - General Family Medicine 07/21/17 documented as of this encounter
--- OUTSIDE RECORDS SUMMARY | 2024-02-18 02:17 | XMS_ITS | Encounter Summary ---
Author Organization [facility] Address [address] [place] [address] Care Team Providers Care Orthotic/Prosthetic Clinician Name Role Phone Dilma aGrrett MD Primary Care Provider [phone] Encounter Details Date Type Department Care Team (Late st Contact Info) Description 08/01/2021 Lab Requisition [facility] Pathology & Laboratory Medicine - [facility] [address], [place] [id number] Outr Resulting Lab, Provider Social History Tobacco [...] Procedure Name Priority Date/Time Associated Diagnosis Comments HIV 1/2 ANTIGEN AND ANTIBODY, 4TH GENERATION Routine 08/01/2021 12:30 EDT documented in this encounter Results * HIV 1/2 ANTIGEN AND ANTIBODY, 4TH GENERATION (08/01/2021 12:30 EDT) HIV 1 and 2 Antibody/p24 Antigen, 4th Generation Negative Negative 08/03/2021 13:[address] [facility] Comment:If acute HIV-1 infec tion is suspected in a high risk patient, submit plasma specimen for HIV-1 RNA quantitation test. Blood VENOUS BLOOD / Unknown 08/01/2021 12:30 EDT 08/01/2021 21:[address] [facility] - 08/03/2021 13:39 EDT Fourth Generation assay performed on the Siemens Inspur [employer] XPT. Provider Outr Resulting Lab IMMUNOLOGY A ND SEROLOGY ORDERABLES [facility] [address] [place] [address] documented in this encounter Visit Diagnoses Not on filedocumented in this encounter Care Teams Orthotic/Prosthetic Clinician Relationship Specialty Start Date End Date Dilma Garrett MD PCP - General 05/30/15 documented as of this encounter
--- OUTSIDE RECORDS SUMMARY | 2024-02-18 02:17 | XMS_ITS | Clinical Summary ---
Author Organization [facility] Address [address] [place] [address] Care Team Providers Care Optimization Analyst Name Role Phone Dilma Garrett MD Primary Care Provider [phone] Social History Tobacco Use Types Packs/Day Years Used Date Smoking Tobacco: Never Assessed Sex and Gender Information Value Date Recorded Sex Assigned at Not on file Gender Identity Not on file Sexual Orientation Not on file Plan of Treatment Health Maintenance Due Date Last Done Comments Hepatitis B Vaccine (1 of 3 - 19+ 3-dose series) 04/21 COVID-19 Vaccine (2022- season) 2023 Hepatitis C Screen Completed 08/01/2021 Procedures Procedure Name Priority Date/Time Associated Diagnosis Comments HEPATITIS C AB W REFLEX TO HCV RNA BY PCR Routine 08/01/2021 12:30 EDT from Last 3 Months or Most Recently Relevant to Health Maintenance Results * HEPATITIS C AB W REFLEX TO HCV RNA BY PCR (08/01/2021 12:30 EDT) Hep C Antibody Negative Negative 08/04/2021 9:54 EDT [facility] Blood VENOUS BLOOD / Unknown 08/01/2021 12:30 EDT 08/01/2021 21:14 EDT Provider Outr Resulting Lab CHEMISTRY & BLOOD GAS ORDERABLES [facility] [address] [place] [address] from Last 3 Months or Most Recently Relevant to Health Maintenance Care Teams Optimization Analyst Relationship Specialty Start Date End Date Dilma Garrett MD [facility] - General 05/30/15
--- OUTSIDE RECORDS SUMMARY | 2024-02-18 02:17 | XMS_ITS | Encounter Summary ---
[place] [address] Care Team Providers Care Product Picker Name Role Phone Dilma Garrett MD Primary Care Provider [phone] Encounter Details Date Type Department Care Team (Latest Contact Info) Description 08/05/2017 8:20 AM EDT Laboratory Appointment Lab [address] [place] [phone] Pituitary abnormality Social History Tobacco Use Types Packs/Day Years Used Date Smoking Tobacco: Never Smokeless Tobacco: Never Sex and Gender Information Value Date Recorded Sex Assigned at Not on file Gender Identity Not on file Sexual Orientation Not on file documented as of this encounter Plan of Treatment Not on file documented as of this encounter Procedures Procedure Name Priority Date/Time Associated Diagnosis Comments INSULIN LIKE GF-1 Routine 08/05/2017 8:3 3 AM EDT Pituitary abnormality PROLACTIN Routine 08/05/2017 8:33 AM EDT Pituitary abnormality ACTH Routine 08/05/2017 8:33 AM EDT Pituitary abnormality TSH Routine 08/05/2017 8:33 AM EDT Pituitary abnormality T4, FREE Routine 08/05/2017 8:33 AM EDT Pituitary abnormality LUTEINIZING HORMONE Routine 08/05/2017 8 :33 AM EDT Pituitary abnormality FOLLICLE STIMULATING HORMONE Routine 08/05/2017 8:33 AM EDT Pituitary abnormality CORTISOL Routine 08/05/2017 8:33 AM EDT Pituitary abnormality BASIC METABOLIC PANEL Routine 08/05/2017 8:33 AM EDT Pituitary abnormality documented in this encounter Results * Luteinizing Hormone (08/05/2017 8:33 AM EDT) Luteinizing Hormone 2.0 1.7 - 8.6 mlU/ML [facility] Comment: Reference ranges: ?? Females ?? Follicular: ? 2.4-12.6 mIU/mL ?? Ovulation: ?14.0-95.6 mIU/mL ?? Luteal: ? 1.0-11.4 mIU/mL ?? Postmenopausal: ? 7.7-58.5 mIU/mL Blood specimen (specimen) 08/05/2017 8:33 AM EDT 08/05/2017 8:37 AM EDT Narrative Resulting Agency Comment Spec In Lab Karine Hua MD CHEMISTRY ORDERABLES [facility] [place] [address] * (ABNORMAL) Follicle Stimulating Hormone (08/05/2017 8:33 AM EDT) Follicle Stimulating Hormone 1.3(L) 1.5 - 12.4 mlU/ML [facility] Comment: Reference Ranges: Females: Follicular: ? 3.5-12.5 mIU/mL Ovulation: ?4.7-21.5 mIU/mL Luteal: ? 1.7-7.7 mIU/mL Postmenopausal: 25.8-134.8 mIU/mL Blood specimen (specimen) 08/05/2017 8:33 AM EDT 08/05/2017 8:37 AM EDT Narrative Resulting Agency Comment Spec In Lab Karine Hua MD CHEMISTRY ORDERABLES Performing Organization Address City/[facility]/ZIP Co de Phone Number [facility] [place] [address] * (ABNORMAL) Prolactin (08/05/2017 8:33 AM EDT) Prolactin 34.8(H) 4.0 - 15.2 ng/mL [facility] Blood specimen (specimen) 08/05/2017 8:33 AM EDT 08/05/2017 8:37 AM EDT Narrative Resulting Agency Comment Spec In Lab Karine Hua MD CHEMISTRY ORDERABLES Performing Organization Address [facility] Co de Phone Number [facility] [place] [address] * Basic Metabolic Panel (non-fasting) (08/05/2017 8:33 AM EDT) Pathologist [facility] Glucose 101 65 - 199 mg/dL [facility] Comment:Diabetes: >=200 mg/d L plus symptoms Blood Urea Nitrogen 12 10 - 20 mg/dL [facility] Creatinine 0.87 0.80 - 1.50 mg/dL [facility] Sodium 140 135 - 145 mmol/L [facility] Potassium 3.9 3.5 - 5.0 mmol/L [facility] Comment: Please note: ??Patients with WBC >100,000 may have falsely elevated Potassium levels. ??For accurate Potassium quantification in these patients send serum separator tube (gold top) for subsequent determinations. ??Contact the Clinical Chemistry Laboratory if there are any questions. Chloride 100 98 - 107 mmol/L [facility] Carbon Dioxide 25 22 - 31 mmol/L [facility] Anion Gap 15 5 - 15 mmol/L [facility] Calcium 9.4 8.5 - 10.5 mg/dL [facility] Est Glomerular Filtration Rate >60 >=60 [facility] Comment: The reported eGFR should be multiplied by 1.2 for patients. The MDRD is not an appropriate measure of renal function for patients with body mass extremes or in patients with acute kidney failure. http://Loyalis.Litigain/DHnkdep http://B2Brev/DHMCnkf Blood specimen (specimen) 08/05/2017 8:33 AM EDT 08/05/2017 8:37 AM EDT Narrative Resulting Agency Comment Spec In Lab Karine Hua MD CHEMISTRY ORDERABLES Performing Organization Address City/[facility]/ZIP Co de Phone Number [facility] [place] [address] * (ABNORMAL) T4, free (08/05/2017 8:33 AM EDT) Free T4 1.71(H) 0.93 - 1.70 ng/dL [facility] Blood specimen (specimen) 08/05/2017 8:33 AM EDT 08/05/2017 8:37 AM EDT Narrative Resulting Agency Comment Spec In Lab Karine Hua MD CHEMISTRY ORDERABLES Performing Organization Address [facility] Co de Phone Number [facility] [place] [address] * TSH (08/05/2017 8:33 AM EDT) Thyroid Stimulating Hormone 1.23 0.27 - 4.20 mlU/ML [facility] Blood specimen (specimen) 08/05/2017 8:33 AM EDT 08/05/2017 8:37 AM EDT Narrative Resulting Agency Comment Spec In Lab Karine Hua MD CHEMISTRY ORDERABLES Performing Organization Address City/[facility]/ZIP Co de Phone Number [facility] [place] [address] * (ABNORMAL) Insulin Like GF-1 (08/05/2017 8:33 AM EDT) Igf-1 Z-Score (MAY) 299(H) 98 - 282 ng/mL [facility] Comment: Edinson Scale Reference Intervals: Gender [...] Hua MD LAB SEND OUT ORDERAB LES [facility] [place] [address] * Cortisol (08/05/2017 8:33 AM EDT) [facility] Cortisol 7.0 mcg/dL [facility] Comment: Reference ranges: ??AM (6-10am): ??4.8-19.5 mcg/dL ??PM (4-8pm) : ??2.5-11.9 mcg/dL Blood specimen (specimen) 08/05/2017 8:33 AM EDT 08/05/2017 8:37 AM EDT Narrative Resulting Agency Comment Spec In Lab Karine Hua MD CHEMISTRY ORDERABLES Performing Organization Address [facility] Co de Phone Number [facility] [place] [address] * ACTH (08/05/2017 8:33 AM EDT) ACTH 18 6 - 50 pg/mL [facility] Comment: Reference range applies only to specimens collected between 7am-10am. Test Performed by [facility], [employer] [facility], [address] [place] [address] Lucius Mednoza M.D., Ph.D., Director of Laboratories , [facility] [id number] Blood specimen (specimen) 08/05/2017 8:33 AM EDT 08/05/2017 5:05 PM EDT Narrative Resulting Agency Comment Spec In Lab Karine Hua MD LAB SEND OUT ORDERAB LES Performing Organization Address [facility] Co de Phone Number [facility] [place] [address] documented in this encounter Visit Diagnoses Diagnosis Pituitary abnormality Unspecified disorder of the pituitary gland and its hypothalamic control documented in this encounter Care Teams Product Picker Relationship Specialty Start Date End Date Dilma Garrett MD [address] [place] [address] PCP - General Family Medicine 07/21/17 documented as of this encounter
--- OUTSIDE RECORDS SUMMARY | 2024-02-18 02:17 | XMS_ITS | Referral Summary ---
Author Organization [facility] Address [address] [place] [address] Care Team Providers Care Fan Mail Clerk Name Role Phone Dilma Garrett MD Primary Care Provider [phone] Social History Tobacco Use Types Packs/Day Years Used Date Smoking Tobacco: Never Assessed Sex and Gender Information Value Date Recorded Sex Assigned at Not on file Gender Identity Not on file Sexual Orientation Not on file Plan of Treatment Not on file Procedures Procedure Name Priority Date/Time Associated Diagnosis Comments HEPATITIS C AB W REFLEX TO HCV RNA BY PCR Routine 08/01/2021 12:30 EDT from Last 3 Months or Most Recently Relevant to Health Maintenance Results * HEPATITIS C AB W REFLEX TO HCV RNA BY PCR (08/01/2021 12:30 EDT) Hep C Antibody Negative Negative 08/04/2021 9:54 EDT [facility] Blood VENOUS BLOOD / Unknown 08/01/2021 12:30 EDT 08/01/2021 21:14 EDT Provider Outr Resulting Lab CHEMISTRY & BLOOD GAS ORDERABLES [facility] [address] [place] [address] from Last 3 Months or Most Recently Relevant to Health Maintenance Care Teams Fan Mail Clerk Relationship Specialty Start Date End Date Dilma Garrett MD PCP - General 05/30/15
--- OUTSIDE RECORDS SUMMARY | 2024-02-18 02:17 | XMS_ITS | Encounter Summary ---
Author Organization [facility] Address [address] [place] [address] Care Team Providers Care Sheet Metal Shop Foreman Name Role Phone Unavailable Primary Care Provider Unavailabl e Encounter Details Date Type Department Care Team (Late st Contact Info) Description 03/29/2000 Results Only [facility] [address] [place], [place] [id number] Edgard Sawyer V, DMD [address] [facility] [address] [place] [phone] Social History Tobacco Use Types Packs/Day Years Used Date Smoking Tobacco: Never Assessed Sex and Gender Information Value Date Recorded Sex Assigned at Not on file Gender Identity Not on file Sexual Orientation Not on file documented as of this encounter Plan of Treatment Not on file documented as of this encounter Procedures Procedure Name Priority Date/Time Associated Diagnosis Comments SURGICAL PATHOLOGY Routine 03/29/2000 0:00 EST documented in this encounter Results * SURGICAL PATHOLOGY (03/29/2000 0:00 EST) Pathology Report: SURGICAL PATHOLOGY REPORT Reports generated via electronic interface contain original data; however they are lacking the format of the original report. Caution should be taken when reading/interpreti ng unformatted reports. Name: ? DAGOBERTO TAPIA ? Accession #: ? [id number] ? : ? 1990 (Age: 9) ??M ? Collect Date: ? 03/29/2000 ? Location: ? [facility] ? Receive Date: ? 03/31/2000 ? Provider: EDGARD SAWYER DMD Copy to: SOPHIE HUA MD ? Final Pathologic Diagnosis: ? Mucosa, oral, right labial: - Mucocele. Document reviewed and electronically signed by: Valerio Hart [facility] Report ??Date: 04/02/2000 17:11 By the signature above, the attending physician certifies that he/she has personally conducted a gross and/or microscopic examination of the described specimens and rendered or confirmed the above diagnosis. Specimen(s) Received: ? Mandibular right labial mucosa, oral papilloma ??excisional bx Clinical History: ? Past history of trauma to apex 4-5 yrs ago, lesion measured 3 x 4 mm on 01/29/00, measures 5 x 6 mm today 03/29/00, recommend excisional biopsy Gross Description: ? Received in formalin labelled Favreau and right mandibular labial mucosa oral papilloma is a piece of white-lou soft tissue which measures 0.7 x 0.5 x 0.1 cm. ??The specimen is bisected and submitted in one cassette. ??(Dr. Malik-)/[facility] End of Report [facility] 03/29/2000 03/31/2000 14: 16 EST Edgard Digna V, DMD PATHOLOGY ORDERABLES [facility] [address] [place] [address] documented in this encounter Visit Diagnoses Not on filedocumented in this encounter
--- OUTSIDE RECORDS SUMMARY | 2024-02-18 02:17 | XMS_ITS | Encounter Summary ---
Author Organization [facility] [place] [address] Care Team Providers Care Harvesting Contractor Name Role Phone Dilma Garrett MD Primary Care Provider [phone] Encounter Details Date Type Department Care Team (Latest Contact Info) Description 07/27/2017 - 07/27/2017 11:59 PM EDT Hospital Encounter Radiology Library at [facility] [place] [phone] [facility] [place] [address] Discharge Disposition: Home Social History Tobacco Use Types Packs/Day Years Used Date Smoking Tobacco: Never Assessed Sex and Gender Information Value Date Recorded Sex Assigned at Not on file Gender Identity Not on file Sexual Orientation Not on file documented as of this encounter Plan of Treatment Not on file documented as of this encounter Procedures Procedure Name Priority Date/Time Associated Diagnosis Comments FILM LIBRARY STORAGE ONLY MR HEAD Routine 07/27/2017 12:00 AM EDT documented in this encounter Results * Film Library- Storage Only MR Head (07/27/2017 12:00 AM EDT) Narrative PATEL - 07/28/2017 12:48 PM EDT This exam is for storage only and is auto-finalizing. Dagoberto RODRIGUEZ FILM LIBRARY ORD ERABLES [facility] [place] documented in this encounter Visit Diagnoses Not on filedocumented in this encounter Care Teams Harvesting Contractor Relationship Specialty Start Date End Date Dilma Garrett MD [address] [place] [address] PCP - General Family Medicine 07/21/17 documented as of this encounter
--- OUTSIDE RECORDS SUMMARY | 2024-02-18 02:17 | XMS_ITS | Encounter Summary ---
Author Organization [facility] Address [address] [place] [address] Care Team Providers Care [employer] Name Role Phone Unknown, Provider Primary Care Provider [phone] Encounter Details Date Type Department Care Team (Late st Contact Info) Description 05/27/2015 Results Only [facility] [phone] Zhao Ruelas, DO [address] [place] [address] Social History Tobacco Use Types Packs/Day Years Used Date Smoking Tobacco: Never Assessed Sex and Gender Information Value Date Recorded Sex Assigned at Not on file Gender Identity Not on file Sexual Orientation Not on file documented as of this encounter Plan of Treatment Not on file documented as of this encounter Procedures Procedure Name Priority Date/Time Associated Diagnosis Comments SURGICAL PATHOLOGY Routine 05/27/2015 9:40 EST documented in this encounter Results * SURGICAL PATHOLOGY (05/27/2015 9:40 EST) Pathology Report: SURGICAL PATHOLOGY REPORT Reports generated via electronic interface contain original data; however they are lacking the format of the original report. Caution should be taken when reading/interpret ing unformatted reports. Name: ? DAGOBERTO TAPIA ? Accession #: ? [id number] ? : ? 1990 (Age: 25) ??M ? Collect Date: ? 05/27/2015 ? Location: ? [facility] ? Receive Date: ? 05/27/2015 ? Provider: ZHAO RUELAS DO Copy to: FLORA FERNANDEZ MD ? Final Pathologic Diagnosis: GALLBLADDER, CHOLECYSTECTOMY: - ??Chronic cholecystitis with cholelithiasis. Document reviewed and electronically signed by: LORRI PAPPAS MD Report ??Date: 05/30/2015 14:04 By the signature above, the attending physician certifies that he/she has personally conducted a gross and/or microscopic examination of the described specimens and rendered or confirmed the above diagnosis. Specimen(s) Received: Gallbladder Clinical History: Symptomatic cholelithiasis; patient would like stone, please send back to [facility] Pathology; clinical diagnosis code: ??K80.21 Gross Description: ? Received in formalin labelled with proper patient identification (initials F, B) and gallbladder is an intact gallbladder (9.0 x 2.5 x 2.0 cm) with an attached segment of cystic duct (0.1 cm in length x 0.2 cm in diameter). ? The serosa is lou-pink. The mucosa is lou-white and trabeculated and the wall is 0.2 cm in thickness. The cystic duct lumen is not patent. The cystic duct margin is inked blue. A single 3.3 cm in greatest dimension brown cholelith is present. ? Two risk control field representative sections and the inked en face cystic duct margin are submitted in 1. Dr. Alvarado 05/28/2015 3:34 PM End of Report [facility] 05/27/2015 9:40 EST 05/27/2015 9:40 EST Zhao Ruelas DO PATHOLOGY ORDERABLES [facility] [address] [place] [address] documented in this encounter Visit Diagnoses Not on filedocumented in this encounter Care Teams [employer] Relationship Specialty Start Date End Date Unknown, Provider, PCP - General 03/10/15 05/29/15 documented as of this encounter
[2024-02-18 10:20] LABS: TSH (W/Ref FT4) 0.87 uIU/mL (0.36-3.74)
[2024-02-18 18:08] LABS: Prolactin 19.2 ng/mL (2.1-17.7)
[2024-02-25 13:22] LABS: Testosterone, Total 488 ng/dL (240-950)
== END 2024-02-18 02:06 | disposition home or self-care (01) ==
LOC: LBO 02:05
PROVIDERS: PCP Nurse Practitioner Family; Visit Provider Nurse Practitioner Family
DX: D35.2 Benign neoplasm of pituitary gland (principal)
CPT/HCPCS: 36415; 82306; 84402; 84403; 84146; 84443

== ENCOUNTER 2024-03-24 01:40 | Outpatient (CLI) | payer OTHER, SELFPAY ==
--- NOTE | 2024-03-24 07:15 | DI.MRI_ITS ---
Exam(s) MR BRAIN PITUITARY WO/W EXAM: MR BRAIN PITUITARY WO/W CLINICAL HISTORY: elevated prolactin,BENIGN NEOPLASM PITUITARY GLAND,D35.2,R79.89 TECHNIQUE: Multiplanar multisequence MRI of the brain was performed using pituitary fossa protocol. Full brain sequences were also performed. Both noninfused and contrast infused sequences were perfo rmed. IV Contrast injected was 14 cc Dotarem. COMPARISON: MR MRI BRAIN - PITUITARY W/WO from 07/27/2017 FINDINGS: CEREBRAL PARENCHYMA: No evidence of intracranial hemorrhage, mass effect nor shift of midline structu re. The ventricles are not enlarged nor shifted. Focal area of exaggerated CSF signal over the left lateral frontal lobe is unchanged from 2018. Possibly a small arachnoid cyst. There is no significant focal signal abnormality in the cerebellar hemispheres nor within the clayton, m idbrain, and thalami. There is no abnormal signal abnormality in the periventricular white matter. DWI: No areas of restricted diffusion to suggest acute ischemic event. SWI: No microhemorrhages evident. There are no ring enhancing lesions in the brain. There is no abnormal meningeal enhancement. PITUITARY GLAND: The size and contour of the pituitary grand remain normal. Superior aspect of the g land is unremarkable and there is no mass in the suprasellar cistern nor deviation of the pituitary s talk/infundibulum. With respect to the previously described small 0.4 x 0.2 cm hypointense area in t he right-side of the pituitary gland on the postcontrast images, it remains unchanged. Questionable microadenoma. No extra sellar extension. No extension into the cavernous sinus. Optic chiasm appea rs unremarkable. FLOW VOIDS: The expected flow void are noted. No evidence of obvious aneurysm nor obvious vascular ma lformation. PARANASAL SINUSES: The visualized paranasal sinuses appear unremarkable. ORBITS: No obvious abnormal findings. IMPRESSION: 1. No significant change compared to the prior MRI scan of 07/27/2017. 2. The previously described small finding in the right-side of the pituitary gland on postcontrast im ages is unchanged. There is no contour abnormality of the pituitary gland at this level. No abnorma l findings in the adjacent cavernous sinus and suprasellar cistern. 3. Slightly exaggerated CSF space over the lateral left frontal lobe is also unchanged from 2018 and may represent a small arachnoid cyst. DATA REPOSITORY:
[2024-03-24] MEDS: Normal Saline Flush 10 ML SYR IVP (12:43)
[2024-03-24] MEDS: Gadoterate meglumine 20 ML SYRINGE 14 ML IVP (12:44)
== END 2024-03-24 02:00 ==
PROVIDERS: PCP Nurse Practitioner Family; Visit Provider Nurse Practitioner Family
DX: D35.2 Benign neoplasm of pituitary gland (principal); R79.89 Other specified abnormal findings of blood chemistry
CPT/HCPCS: 70553

== ENCOUNTER 2024-06-09 13:54 | Outpatient (CLI) | payer OTHER, SELFPAY ==
[2024-06-09 10:08] LABS: TSH (W/Ref FT4) 0.75 uIU/mL (0.36-3.74); Vitamin D 25 Total 18.9 ng/mL (30-100)
[2024-06-09 20:02] LABS: Prolactin 16.7 ng/mL (2.1-17.7)
[2024-06-12 12:13] LABS: Adrenocorticotropic Hormone, P 32 pg/mL
[2024-06-15 16:03] LABS: Testosterone, Free 12.2 ng/dL (4.85-19.0); Testosterone, Total 399 ng/dL (240-950)
== END 2024-06-09 13:55 | disposition home or self-care (01) ==
LOC: LBO 13:55
PROVIDERS: PCP Nurse Practitioner Family; Visit Provider Student in an Organized Health Care Education/Training Program
DX: D35.2 Benign neoplasm of pituitary gland (principal); R53.83 Other fatigue
CPT/HCPCS: 36415; 82306; 82533; 84402; 84403; 82024; 84146; 84443

== ENCOUNTER 2024-09-13 03:21 | Outpatient (CLI) | payer OTHER, SELFPAY ==
[2024-09-13 11:30] LABS: Vitamin D 25 Total 25 ng/mL (30-100)
[2024-09-13 11:43] LABS: Creatine Kinase 133 U/L (39-308)
== END 2024-09-13 03:22 | disposition home or self-care (01) ==
LOC: LBO 03:21
PROVIDERS: PCP Nurse Practitioner Family; Referring Provider Nurse Practitioner Family; Visit Provider Nurse Practitioner Family
DX: E55.9 Vitamin D deficiency, unspecified (principal); M79.10 Myalgia, unspecified site
CPT/HCPCS: 36415; 82306; 82550

== ENCOUNTER 2024-12-06 02:22 | Outpatient (CLI) | payer OTHER, SELFPAY ==
[2024-12-06 12:02] LABS: Hemoglobin A1C 5.3 % (<5.7)
[2024-12-06 12:20] LABS: Vitamin D 25 Total 55 ng/mL (30-100)
== END 2024-12-06 02:23 | disposition home or self-care (01) ==
LOC: LBO 02:23
PROVIDERS: PCP Nurse Practitioner Family; Referring Provider Nurse Practitioner Family; Visit Provider Nurse Practitioner Family
DX: E55.9 Vitamin D deficiency, unspecified (principal); R53.82 Chronic fatigue, unspecified; Z83.3 Family history of diabetes mellitus
CPT/HCPCS: 36415; 82306; 83036

== ENCOUNTER 2025-04-17 12:01 | Outpatient (CLI) | payer OTHER, SELFPAY ==
[2025-04-17 12:17] LABS: HCT 45.4 % (40.0-50.0); HGB 15.1 g/dL (13.5-17.5); MCH 29.8 pg (27.0-33.0); MCHC 33.3 % (32.0-36.0); MCV 90 fL (80-95); MPV 10.8 fL (8.0-11.0); Platelet Count 211 10^3/uL (130-400); RBC 5.06 10^6/uL (4.36-5.78); RDW 12.7 % (11.8-14.1); RDW-SD 41.8 fL; WBC 5.88 10^3/uL (4.4-10.8)
[2025-04-17 13:56] LABS: TSH (W/Ref FT4) 0.56 uIU/mL (0.55-4.78); Vitamin D 25 Total 53 ng/mL (30-100)
== END 2025-04-17 12:02 | disposition home or self-care (01) ==
LOC: LBO 12:02
PROVIDERS: PCP Nurse Practitioner Family; Visit Provider Nurse Practitioner Family
DX: E55.9 Vitamin D deficiency, unspecified (principal); R79.89 Other specified abnormal findings of blood chemistry; R23.3 Spontaneous ecchymoses
CPT/HCPCS: 36415; 82306; 85027; 84443